=== PATIENT | male | born 1945 | race Caucasian/White ===

== ENCOUNTER → 2017-02-08 | Outpatient (CLI) | payer MEDICARE, BC ==
[2017-02-08 10:38] LABS: CH 31.8; CHCM 32.8; HCT 50.2 % (39.0-53.0); HDW 2.28; HGB 15.8 gm/dL (13.0-17.5); MCH 30.8 pg (25.0-35.0); MCHC 31.6 g/dL (31.0-37.0); MCV 97.4 fL (80.0-100.0); Mean Platelet Volume 8.2; RBC 5.15 m/uL (4.30-5.90); RDW 14.4 % (11.5-15.5)
[2017-02-08 11:18] LABS: Anion Gap 9 mmol/L; Blood Urea Nitrogen 19 mg/dL (9-20); Calcium 9.5 mg/dL (8.4-10.2); Carbon Dioxide 28 mmol/L (22-30); Chloride 106 mmol/L (98-107); Glucose 94 mg/dL (74-99); Non-African American GFR(MDRD) >60 (>60 ml/min/1.73 sqM); Potassium 4.4 mmol/L (3.5-5.1); Sodium 143 mmol/L (137-145)
== END | disposition home or self-care (01) ==
LOC: LABPAT 10:09
PROVIDERS: ATTEND Internal Medicine Interventional Cardiology
DX: Z01.812 Encounter for preprocedural laboratory examination (principal); I10 Essential (primary) hypertension; I35.0 Nonrheumatic aortic (valve) stenosis; I25.10 Atherosclerotic heart disease of native coronary artery without angina pectoris
CPT/HCPCS: 80048; 85027

== ENCOUNTER → 2017-02-18 | Day surgery (SDC) | payer MEDICARE, BC ==
[2017-02-10 10:24] VITALS: BMI 36.8
[~2017-02-18] MED LIST: ALPRAZolam 0.25 MG TAB PO PRN; ALPRAZolam 0.5 MG TAB PO PRN; ASPIRIN 325 MG TAB PO STA; ATORVASTATIN 80 MG TAB PO STA; BENZOCAINE SPRAY 1 SPRAY CAN MUCOUS MEM ONE; HEPARIN SODIUM 1,000 UN/ML (10ML VL) IV ONE; IOHEXOL 350 MG/ML 100 ML BOTTLE INJ ONE; LIDOCAINE 2% INJ 20 MG/ML SQ ONE; MIDAZOLAM 2 MG/2 ML VIAL IV ONE; MIDAZOLAM 2 MG/2 ML VIAL ONE; NITROGLYCERIN SL TABS 0.4 MG TAB SUBLINGUAL PRN; SODIUM CHLORIDE 0.9% 1,000 ML IV ONE; SODIUM CHLORIDE 0.9% 1,000 ML in EMPTY BAG 1 BAG IV ONE; VERAPAMIL SYRINGE (5 MG/10 ML) INTRAARTER ONE; diphenhydrAMINE 50 MG/ML 1 ML VIAL IVP ONE; fentaNYL (PF) 50 MCG/ML 2 ML AMP IV ONE; fentaNYL (PF) 50 MCG/ML 2 ML AMP ONE
[2017-02-18 09:16] VITALS: RESP 16
--- NOTE | 2017-02-18 16:05 | ECHOT ---
TRANSESOPHAGEAL ECHOCARDIOGRAM TRANSESOPHAGEAL ECHOCARDIOGRAM The transesophageal echocardiogram was performed to evaluate the patient's aortic stenosis. Patient was given intravenous sedation with Versed and fentanyl and transesophageal echocardiogram was performed without any complications. Left ventricular chamber is normal in size with mild degree of left ventricular hypertrophy and normal left ventricular systolic functions. The left atrium is mildly enlarged. The left atrial appendage is normal. Mitral valve morphology is normal. Aortic valve is calcified and it is tricuspid. Aortic valve area is about 1.4 square centimeter suggestive of moderate degree of aortic stenosis. A peak gradient of about 65 to 70 mmHg was noted across the aortic valve; however, there is a moderate degree of eccentric aortic regurgitation noted. Left ventricular systolic function is normal. Interatrial septum is intact. Descending thoracic aorta is normal. There is no evidence of any PFO by saline contrast study. FINAL IMPRESSION: 1. The aortic valve is trileaflet, calcified. Aortic valve area is about 1.4 square centimeter suggestive of moderate degree of aortic stenosis. There is a moderate degree of eccentric aortic regurgitation noted. 2. Left ventricular chamber is normal in size with mild degree of left ventricular hypertrophy and normal left ventricular systolic function. 3. Left atrium is mildly enlarged. 4. Left atrial appendage is clear. 5. Interatrial septum is intact without any evidence of any patent foramen ovale. MMODL / IJN: [id number] /
[2017-02-18 18:28] VITALS: BP 126/80; PULSE 58; TEMP 98.2
--- NOTE | 2017-02-19 08:24 | CC ---
CARDIAC CATHETERIZATION REPORT DATE OF SERVICE: 02/18/2017. PROCEDURE: Left heart catheterization, coronary angiography and aortography. PERFORMED BY: Dr. Andres Hampton. CLINICAL INFORMATION: Mr. Matthieu Lara is a 71-year-old gentleman with history of known CAD, who underwent stenting of nondominant good caliber circumflex that was performed in March of 2013. He also has moderate to severe aortic stenosis with progressive increasing symptoms as well as increased velocity across the aortic valve. He had a transesophageal echo which revealed moderate aortic stenosis and moderate regurgitation. Valve area was in the 1.4 range. He was also advised coronary angiography given his symptoms of exertional chest pressure and known previous PCI. Moderate conscious sedation was provided for a total duration of 30 minutes. PROCEDURE: Under local anesthesia and strict aseptic precautions, a 6-English introducer was placed in the right radial artery. I used a micropuncture needle technique. A ultimate 1 catheter was used to perform selective coronary angiography of the left coronary system. A standard right Lynsey catheter was used to perform selective coronary angiography of the right coronary artery. LV pressures were not checked and LV- gram was not performed. I then performed an aortogram in the INDIAN projection to assess for aortic regurgitation. The patient tolerated the procedure well. The sheath was taken out and he had a new device to secure hemostasis. This is called a Tracelet. Good hemostasis was secured and was sent to the room in stable condition. The patient received 3000 units of heparin intravenously. Findings on cardiac cath and MAHSA were discussed with the patient and and I expect he will be discharged later on today if she remains stable. CORONARY ANGIOGRAPHY FINDINGS: Right coronary artery: A very large dominant vessel. It has minor irregularities. No significant disease. Distally bifurcates into a larger PLV and small PDA both of which are quite large in distribution. No significant disease other than minor irregularities. Left main coronary artery: Short patent disease-free vessel that bifurcates into LAD and circumflex. LAD has minor irregularities, gives of diagonal branches and proximally several septal branches. No significant disease. Left posterior circumflex coronary artery: This vessel in the midportion was stented with a 3.0 caliber 18 mm drug-eluting stent in 2012. The vessel is widely patent with brisk flow. No evidence of any restenosis noted. Aortogram: This was performed in INDIAN projection and revealed aortic root that was of normal size. There is mild to moderate eccentric aortic regurgitation that seems to flow along the left coronary cusp. IMPRESSION: This patient does not have any restenosis of the circumflex. His LAD and dominant RCA are free of significant disease. He does have mild to moderate, probably more moderate than mild aortic regurgitation. By MAHSA echo he has moderate aortic stenosis. RECOMMENDATIONS: I agree with continued medical therapy without intervention for now. Findings were discussed with the patient and . I expect he will be discharged later on today if he remains stable. SAYRA / BETY: [id number] / JO
== END ==
LOC: CATHCVL 07:48
PROVIDERS: ATTEND Internal Medicine Interventional Cardiology
DX: I25.10 Atherosclerotic heart disease of native coronary artery without angina pectoris (principal); Z95.5 Presence of coronary angioplasty implant and graft; I35.0 Nonrheumatic aortic (valve) stenosis; J45.909 Unspecified asthma, uncomplicated; I10 Essential (primary) hypertension; E66.9 Obesity, unspecified; Z68.36 Body mass index [BMI] 36.0-36.9, adult; E78.5 Hyperlipidemia, unspecified; Z79.02 Long term (current) use of antithrombotics/antiplatelets; Z79.82 Long term (current) use of aspirin; Z79.899 Other long term (current) drug therapy; Z82.49 Family history of ischemic heart disease and other diseases of the circulatory system
CPT/HCPCS: 93312; 93320; 93325; 93454; 93567; 99152; 99153; C1894 ×2; J2001; J2250; J1200; Q9967; J3010; J1644

== ENCOUNTER 2017-03-29 08:13 | Day surgery (SDC) | payer MEDICARE, BC ==
[2017-03-25 12:57] VITALS: BMI 36.8
[~2017-03-29 08:13] MED LIST changes: -ALPRAZolam 0.25 MG TAB PO PRN; -ALPRAZolam 0.5 MG TAB PO PRN; -ASPIRIN 325 MG TAB PO STA; -ATORVASTATIN 80 MG TAB PO STA; -BENZOCAINE SPRAY 1 SPRAY CAN MUCOUS MEM ONE; -HEPARIN SODIUM 1,000 UN/ML (10ML VL) IV ONE; -IOHEXOL 350 MG/ML 100 ML BOTTLE INJ ONE; +LACTATED RINGERS 1,000 ML IV SCH; +LIDOCAINE 1% 20 ML VIAL (10MG/ML) FOR IV START INTRADERMA PRN; -LIDOCAINE 2% INJ 20 MG/ML SQ ONE; -MIDAZOLAM 2 MG/2 ML VIAL IV ONE; -MIDAZOLAM 2 MG/2 ML VIAL ONE; -NITROGLYCERIN SL TABS 0.4 MG TAB SUBLINGUAL PRN; -SODIUM CHLORIDE 0.9% 1,000 ML IV ONE; -SODIUM CHLORIDE 0.9% 1,000 ML in EMPTY BAG 1 BAG IV ONE; -VERAPAMIL SYRINGE (5 MG/10 ML) INTRAARTER ONE; -diphenhydrAMINE 50 MG/ML 1 ML VIAL IVP ONE; -fentaNYL (PF) 50 MCG/ML 2 ML AMP IV ONE; -fentaNYL (PF) 50 MCG/ML 2 ML AMP ONE
[2017-03-29 09:21] VITALS: RESP 16; TEMP 98.1
[2017-03-29] MEDS ORDERED: LIDOCAINE 1% INJ 10MG/ML (20 ML MDV) ONE (09:44)
[2017-03-29] MEDS ORDERED: PROPOFOL 10 MG/ML 20 ML VIAL IV ONE (09:44)
--- NOTE | 2017-03-29 10:16 | P.PCN ---
Date of Procedure: 03/29/17 Procedure(s) Performed: Procedure: Total colonoscopy. Preoperative diagnosis: Screening for neoplasia, patient has history of polyps. Postoperative diagnosis: Left sided diverticulosis with no evidence of acute diverticulitis, strictures, polyps or cancer. Preparation: HalfLytely prep. Sedation: Was provided by anesthesia. Brief clinical history: The patient is a 72-year-old male who is scheduled for this evaluation for screening for neoplasia age being her risk factor as well as history of polyps. His last exam was in October 2011. He has no abdominal complaints at this time, bleeding or anemia. Procedure: With the patient on his left lateral decubitus position and after informed consent and adequate sedation, the perianal area was inspected and it did not show any fissures or fistulas. There were no masses felt on digital rectal examination. The Olympus CFQ 160L video colonoscope was then inserted in the rectum in the usual fashion and advanced to the cecum. The mucosa appeared healthy. No polyps or tumors were seen. There was several diverticular orifices seen scattered along the left side with no evidence of acute diverticulitis or strictures. I retroflexed the endoscope in the rectum before the endoscope was withdrawn. The patient tolerated the procedure well. Plan: The patient was reassured. Discussed dietary measures. He will follow- up with you as planned and I recommended repeat exam in 5 years.
[2017-03-29 10:42] VITALS: BP 110/55; PULSE 48
== END 2017-03-29 11:24 | disposition home or self-care (01) ==
LOC: ORWHC2ENDO 08:13
DX: Z12.11 Encounter for screening for malignant neoplasm of colon (principal); K57.30 Diverticulosis of large intestine without perforation or abscess without bleeding; Z86.010 Personal history of colon polyps; N40.0 Benign prostatic hyperplasia without lower urinary tract symptoms; I25.10 Atherosclerotic heart disease of native coronary artery without angina pectoris; Z95.5 Presence of coronary angioplasty implant and graft; I10 Essential (primary) hypertension; E78.5 Hyperlipidemia, unspecified; M19.90 Unspecified osteoarthritis, unspecified site; Z79.02 Long term (current) use of antithrombotics/antiplatelets; Z79.82 Long term (current) use of aspirin; Z79.899 Other long term (current) drug therapy
CPT/HCPCS: J2001; J2704; G0105; 45378

== ENCOUNTER → 2018-02-24 | Outpatient (CLI) | payer MEDICARE, BC | LOC: LABWHC1 15:46 | PROVIDERS: ATTEND Orthopaedic Surgery | DX: Z01.818 Encounter for other preprocedural examination (principal); N28.9 Disorder of kidney and ureter, unspecified | CPT/HCPCS: 36415; 82565; 84520 ==

== ENCOUNTER → 2018-05-31 | Outpatient (CLI) | payer MEDICARE, BC ==
[2018-05-31 12:59] LABS: HCT 41.3 % (39.0-53.0); HGB 12.9 gm/dL (13.0-17.5); Hypochromasia Slight; MCH 29.8 pg (25.0-35.0); MCHC 31.1 g/dL (31.0-37.0); MCV 95.6 fL (80.0-100.0); Mean Platelet Volume 7.5; Platelet Count 206 k/uL (150-450); RBC 4.32 m/uL (4.30-5.90); RDW 13.8 % (11.5-15.5); WBC 8.5 k/uL (3.8-10.6)
[2018-05-31 13:08] LABS: ALT 24 U/L (21-72); AST 24 U/L (17-59); Albumin 4.1 g/dL (3.5-5.0); Albumin/Globulin Ratio 1.4; Alkaline Phosphatase 167 U/L (38-126); Anion Gap 12 mmol/L; Blood Urea Nitrogen 17 mg/dL (9-20); Calcium 9.5 mg/dL (8.4-10.2); Carbon Dioxide 24 mmol/L (22-30); Chloride 107 mmol/L (98-107); Glucose 102 mg/dL (74-99); Sodium 143 mmol/L (137-145); Total Bilirubin 0.6 mg/dL (0.2-1.3); Total Protein 7.1 g/dL (6.3-8.2)
--- NOTE | 2018-05-31 13:19 | XR ---
EXAMINATION TYPE: XR chest 2V DATE OF EXAM: 05/31/2018 COMPARISON: 03/21/2013 HISTORY: Fever, chills, and loss of appetite. TECHNIQUE: Frontal and lateral views of the chest are obtained. FINDINGS: There is no focal air space opacity, pleural effusion, or pneumothorax seen. The cardiac silhouette size is within normal limits. The osseous structures are intact. There is slight pulmona ry hyperinflation with partial flattening of the diaphragms on the lateral view suggesting a degree o f underlying pulmonary emphysema. Mild multilevel degenerative changes of the thoracic spine are seen . Degenerative changes of the acromioclavicular joints are moderate. IMPRESSION: No acute cardiopulmonary process.
[2018-05-31 14:36] LABS: Appearance,Urine Cloudy (Clear); Bilirubin,Urine Negative (Negative); Blood,Urine Moderate (Negative); Color,Urine Yellow; Glucose,Urine (UA) Negative (Negative); Hyaline Casts,Urine 11 /lpf (0-2); Ketones,Urine Negative (Negative); Leukocyte Esterase,Urine Large (Negative); Mucus,Urine Occasional /hpf; Nitrite,Urine Negative (Negative); Protein,Urine 1+ (Negative); RBC,Urine 13 /hpf (0-5); Specific Gravity,Urine 1.011 (1.001-1.035); Squamous Epithelial Cell,Urine 3 /hpf (0-4); Urobilinogen,Urine <2.0 mg/dL (<2.0); WBC,Urine >182 /hpf (0-5)
[2018-05-31 14:43] LABS: Bacteria,Urine Rare /hpf
== END ==
LOC: LABWHC1 12:16
PROVIDERS: ATTEND Internal Medicine
DX: R50.9 Fever, unspecified (principal)
CPT/HCPCS: 36415; 71046; 80053; 81001; 85027; 87086

== ENCOUNTER 2019-10-17 06:38 | Inpatient (IN) | payer MEDICARE, BC ==
[2019-10-17] MEDS ORDERED: SODIUM CHLORIDE 0.9% 500 ML 500 ML IV STA (06:44)
[2019-10-17] MEDS ORDERED: PANTOPRAZOLE 40 MG/10 ML VIAL IVP STA (06:50)
[2019-10-17] MEDS ORDERED: SODIUM CHLORIDE 0.9% 1,000 ML IV ONE (07:00)
--- NOTE | 2019-10-17 07:05 | ED ---
GI Bleed HPI <Bulmaro Desir - Last Filed: 10/17/19 08:20> - General Source: EMS Mode of arrival: EMS Limitations: no limitations <AlkaTiffani Duong - Last Filed: 10/17/19 09:43> - General Chief complaint: GI Bleed Stated complaint: GI Bleed Time Seen by Provider: 10/17/19 06:44 - History of Present Illness Initial comments: 74yo male presenting today for abdominal discomfort x 1 week and rectal bleeding x 1 night. Patient states he has been having abdominal pain x 1 week, worsening since last night. He states he then began having very loose stools that were very dark/dark red. He denies anticoagulation therapy. Denies vomiting, upper abdominal pain, back pain. Denies fevers, cough. Denies known history of diverticulosis. Patient denies chest pain SOB. Patient states he felt lightheaded after last BM and called EMS as he was nervous he may pass out. Patient has no additional complaints. Upon arrival patient appears well there is no signs of acute distress. Pt states he has been off plavix for a 1.5 yrs (Tiffani Rucker) - Related Data Home Medications Medication Instructions Recorded Confirmed Aspirin [Adult Low Dose Aspirin EC] 81 mg PO DAILY 02/10/17 10/17/19 Atorvastatin [Lipitor] 40 mg PO HS 02/10/17 10/17/19 Ketotifen 0.025% Ophth Soln 1 drop BOTH EYES BID PRN 02/10/17 10/17/19 [Zaditor] Losartan Potassium [Cozaar] 100 mg PO DAILY 02/10/17 10/17/19 Magnesium Chloride [Slow Mag] 64 mg PO BID 02/10/17 10/17/19 Metoprolol Tartrate [Lopressor] 25 mg PO DAILY 02/10/17 10/17/19 Ubidecarenone [Co Q-10] 100 mg PO HS 02/10/17 10/17/19 amLODIPine [Norvasc] 5 mg PO DAILY 02/10/17 10/17/19 Acetaminophen [Tylenol Extra 500 mg PO BID 10/17/19 10/17/19 Strength] Calcium Carbonate [Calcium] 600 mg PO HS 10/17/19 10/17/19 Clotrimazole/Betamethasone Dip 1 applic TOPICAL BID 10/17/19 10/17/19 [Lotrisone Cream] Pantoprazole Sodium [Protonix] 40 mg PO DAILY 10/17/19 10/17/19 Allergies Allergy/AdvReac Type Severity Reaction Status Date / Time No Known Allergies Allergy Verified 10/17/19 08:21 Review of Systems ROS Other: All systems not noted in ROS Statement are negative. <Bulmaro Desir - Last Filed: 10/17/19 08:20> ROS Other: All systems not noted in ROS Statement are negative. <Tiffani Rucker Rhoda - Last Filed: 10/17/19 09:43> ROS Statement: Those systems with pertinent positive or pertinent negative responses have been documented in the HPI. Past Medical History Past Medical History: Hyperlipidemia, Hypertension, Osteoarthritis (OA), Prostate Disorder Additional Past Medical History / Comment(s): past hx colon polyps, artoic stenosis History of Any Multi-Drug Resistant Organisms: None Reported Past Surgical History: Adenoidectomy, Cholecystectomy, Heart Catheterization, Heart Catheterization With Stent, Orthopedic Surgery, Tonsillectomy Additional Past Surgical History / Comment(s): arthroscopy knee Past Anesthesia/Blood Transfusion Reactions: No Reported Reaction Date of Last Stent Placement:: 2012 Past Psychological History: No Psychological Hx Reported Smoking Status: Never smoker Past Alcohol Use History: None Reported Past Drug Use History: None Reported <AlkaTiffani L - Last Filed: 10/17/19 09:43> General Exam Limitations: no limitations <Tiffani Rucker - Last Filed: 10/17/19 09:43> - General Exam Comments Initial Comments: General: The patient is awake and alert Eye: +3 mm pupils are equal, round and reactive to light, extra-ocular movements are intact. No nystagmus. There is normal conjunctiva bilaterally. No signs of icterus. Cardiovascular: There is a increased rate and regular rhythm. No rub or gallop is appreciated. Pt has murmur. Respiratory: Lungs are clear to auscultation, respirations are non-labored, breath sounds are equal. No wheezes, stridor, rales, or rhonchi. Gastrointestinal: Soft, non-distended, non-tender abdomen without masses or organomegaly noted. There is no rebound or guarding present. Rectal: Large amount of dark melanotic stool, red tinge. Musculoskeletal: Normal ROM, no tenderness. Strength 5/5. Sensation intact. Radial pulses equal bilaterally 2+. Neurological: A&O x 3. CN II-XII intact grossly, There are no obvious motor or sensory deficits. Coordination appears grossly intact. Speech is normal. Skin: Skin is warm and dry and no rashes or lesions are noted. Psychiatric: Cooperative, appropriate mood & affect, normal judgment. (Tiffani Rucker) Course <ThangBulmaro - Last Filed: 10/17/19 08:20> Vital Signs 10/17/19 10/17/19 06:39 08:46 Temperature 99 F 98.1 F Pulse Rate 105 H 96 Respiratory 20 16 Rate Blood Pressure 131/81 119/72 O2 Sat by Pulse 98 97 Oximetry - Reevaluation(s) Reevaluation #1: 10/17/19 08:20 PA supervision: I proceeded [id number] evaluation the patient patient did have about a week and started having dark bowel movements some mixed with red and black. He was noted to be anemic and had a positive Hemoccult on examination. Patient will be admitted for GI bleed the case is discussed with the [facility] Dr. Chan. (Bulmaro Desir) Medical Decision Making - Lab Data Result diagrams: 10/17/19 06:45 10/17/19 06:45 <ThangBulmaro - Last Filed: 10/17/19 08:20> - Lab Data Result diagrams: 10/17/19 06:45 10/17/19 06:45 <Tiffani Rucker - Last Filed: 10/17/19 09:43> - Medical Decision Making 74yo male presenting today for cc of rectal bleeding/lower abdominal pain. Hgb stable. Mild tachycardia and elevation of troponin concerning for acute GI bleed. Patient given protonix in the ER. Hx of frequent NSAID use. Patient CT revealed possible diverticulitis with more definite diverticulosis. Patient no leukocytosis, patient does not appear toxic. Patient initiated on zosyn, IV fluids (1L initially given--limited somewhat secondary to patient have valvular disease, did not want to fluid overload patient). Patient will be admitted to for acute GI bleed. Repeat CBC ordered. Covid (-). [facility] Physician Dr. Chan accepted the admission. Discussed findings with patient-transferred to floor in stable condition. (Tiffani Rucker) - Lab Data Lab Results 10/17/19 10/17/19 10/17/19 Range/Units 06:45 06:45 06:45 WBC 11.2 H (3.8-10.6) k/uL RBC 3.36 L (4.30-5.90) m/uL Hgb 10.5 L (13.0-17.5) gm/dL Hct 32.3 L (39.0-53.0) % MCV 96.2 (80.0-100.0) fL MCH 31.4 (25.0-35.0) pg MCHC 32.6 (31.0-37.0) g/dL RDW 14.3 (11.5-15.5) % Plt Count 221 (150-450) k/uL Neutrophils % 85 % Lymphocytes % 11 % Monocytes % 2 % Eosinophils % 0 % Basophils % 0 % Neutrophils # 9.4 H (1.3-7.7) k/uL Lymphocytes # 1.2 (1.0-4.8) k/uL Monocytes # 0.2 (0-1.0) k/uL Eosinophils # 0.0 (0-0.7) k/uL Basophils # 0.1 (0-0.2) k/uL Hypochromasia Slight Sodium 139 (137-145) mmol/L Potassium 4.9 (3.5-5.1) mmol/L Chloride 111 H (98-107) mmol/L Carbon Dioxide 19 L (22-30) mmol/L Anion Gap 9 mmol/L BUN 52 H (9-20) mg/dL Creatinine 0.96 (0.66-1.25) mg/dL Est GFR (CKD-EPI)AfAm >90 (>60 ml/min/1.73 sqM) Est GFR (CKD-EPI)NonAf 78 (>60 ml/min/1.73 sqM) Glucose 220 H (74-99) mg/dL Calcium 8.6 (8.4-10.2) mg/dL Total Bilirubin 0.4 (0.2-1.3) mg/dL AST 27 (17-59) U/L ALT 18 (4-49) U/L Alkaline Phosphatase 70 (38-126) U/L Troponin I 0.064 H* (0.000-0.034) ng/mL Total Protein 6.1 L (6.3-8.2) g/dL Albumin 3.4 L (3.5-5.0) g/dL Stool Occult Blood (Negative) Blood Type Blood Type Confirm Blood Type Recheck Bld Type Recheck Status Antibody Screen Spec Expiration Date 10/17/19 10/17/19 10/17/19 Range/Units 06:45 06:45 08:00 WBC (3.8-10.6) k/uL RBC (4.30-5.90) m/uL Hgb (13.0-17.5) gm/dL Hct (39.0-53.0) % MCV (80.0-100.0) fL MCH (25.0-35.0) pg MCHC (31.0-37.0) g/dL RDW (11.5-15.5) % Plt Count (150-450) k/uL Neutrophils % % Lymphocytes % % Monocytes % % Eosinophils % % Basophils % % Neutrophils # (1.3-7.7) k/uL Lymphocytes # (1.0-4.8) k/uL Monocytes # (0-1.0) k/uL Eosinophils # (0-0.7) k/uL Basophils # (0-0.2) k/uL Hypochromasia Sodium (137-145) mmol/L Potassium (3.5-5.1) mmol/L Chloride (98-107) mmol/L Carbon Dioxide (22-30) mmol/L Anion Gap mmol/L BUN (9-20) mg/dL Creatinine (0.66-1.25) mg/dL Est GFR (CKD-EPI)AfAm (>60 ml/min/1.73 sqM) Est GFR (CKD-EPI)NonAf (>60 ml/min/1.73 sqM) Glucose (74-99) mg/dL Calcium (8.4-10.2) mg/dL Total Bilirubin (0.2-1.3) mg/dL AST (17-59) U/L ALT (4-49) U/L Alkaline Phosphatase (38-126) U/L Troponin I (0.000-0.034) ng/mL Total Protein (6.3-8.2) g/dL Albumin (3.5-5.0) g/dL Stool Occult Blood Positive (Negative) Blood Type TNP AB Positive Blood Type Confirm Blood Type Recheck No Previous Record No Previous Record Bld Type Recheck Status CABO Indicated CABO Indicated Antibody Screen TNP NEGATIVE Spec Expiration Date 10/20/2019 - 234410/20/2019 - 229910/17/19 Range/Units 08:05 WBC (3.8-10.6) k/uL RBC (4.30-5.90) m/uL Hgb (13.0-17.5) gm/dL Hct (39.0-53.0) % MCV (80.0-100.0) fL MCH (25.0-35.0) pg MCHC (31.0-37.0) g/dL RDW (11.5-15.5) % Plt Count (150-450) k/uL Neutrophils % % Lymphocytes % % Monocytes % % Eosinophils % % Basophils % % Neutrophils # (1.3-7.7) k/uL Lymphocytes # (1.0-4.8) k/uL Monocytes # (0-1.0) k/uL Eosinophils # (0-0.7) k/uL Basophils # (0-0.2) k/uL Hypochromasia Sodium (137-145) mmol/L Potassium (3.5-5.1) mmol/L Chloride (98-107) mmol/L Carbon Dioxide (22-30) mmol/L Anion Gap mmol/L BUN (9-20) mg/dL Creatinine (0.66-1.25) mg/dL Est GFR (CKD-EPI)AfAm (>60 ml/min/1.73 sqM) Est GFR (CKD-EPI)NonAf (>60 ml/min/1.73 sqM) Glucose (74-99) mg/dL Calcium (8.4-10.2) mg/dL Total Bilirubin (0.2-1.3) mg/dL AST (17-59) U/L ALT (4-49) U/L Alkaline Phosphatase (38-126) U/L Troponin I (0.000-0.034) ng/mL Total Protein (6.3-8.2) g/dL Albumin (3.5-5.0) g/dL Stool Occult Blood (Negative) Blood Type Blood Type Confirm AB Positive Blood Type Recheck Bld Type Recheck Status Antibody Screen Spec Expiration Date Disposition <Bulmaro Desir - Last Filed: 10/17/19 08:20> Is patient prescribed a controlled substance at d/c from ED?: No Time of Disposition: 07:48 Decision to Admit Reason: Admit from EC Decision Date: 10/17/19 Decision Time: 07:48 <Tiffani Rucker - Last Filed: 10/17/19 09:43> Clinical Impression: GI bleed, Tachycardia, Elevated troponin, Diverticulitis Disposition: ADMITTED IP TO THIS HOSP Condition: Serious
[2019-10-17] MEDS: SODIUM CHLORIDE 0.9% 1,000 ML IV SCH ×3 (07:07→20:27)
[2019-10-17 07:10] LABS: Basophils # (A) 0.1 k/uL (0-0.2); Basophils % (A) 0 %; Eosinophils % (A) 0 %; HCT 32.3 % (39.0-53.0); HGB 10.5 gm/dL (13.0-17.5); Hypochromasia Slight; Lymphocytes # (A) 1.2 k/uL (1.0-4.8); Lymphocytes % (A) 11 %; MCH 31.4 pg (25.0-35.0); MCHC 32.6 g/dL (31.0-37.0); MCV 96.2 fL (80.0-100.0); Mean Platelet Volume 8.4; Monocytes # (A) 0.2 k/uL (0-1.0); Monocytes % (A) 2 %; Neutrophils # (A) 9.4 k/uL (1.3-7.7); Neutrophils % (A) 85 %; Platelet Count 221 k/uL (150-450); RBC 3.36 m/uL (4.30-5.90); RDW 14.3 % (11.5-15.5); WBC 11.2 k/uL (3.8-10.6)
[2019-10-17 07:19] LABS: ALT 18 U/L (4-49); AST 27 U/L (17-59); African American GFR (CKD) >90 (>60 ml/min/1.73 sqM); Albumin 3.4 g/dL (3.5-5.0); Alkaline Phosphatase 70 U/L (38-126); Anion Gap 9 mmol/L; Blood Urea Nitrogen 52 mg/dL (9-20); Calcium 8.6 mg/dL (8.4-10.2); Carbon Dioxide 19 mmol/L (22-30); Chloride 111 mmol/L (98-107); Glucose 220 mg/dL (74-99); Non-African American GFR(CKD) 78 (>60 ml/min/1.73 sqM); Sodium 139 mmol/L (137-145); Total Bilirubin 0.4 mg/dL (0.2-1.3); Total Protein 6.1 g/dL (6.3-8.2)
[2019-10-17 07:23] LABS: Potassium 4.9 mmol/L (3.5-5.1)
[2019-10-17] MEDS ORDERED: NALOXONE 0.4 MG/ML 1 ML VIAL IV PRN (07:35)
--- NOTE | 2019-10-17 08:09 | CT ---
EXAMINATION TYPE: CT abdomen pelvis w con DATE OF EXAM: 10/17/2019 COMPARISON: HISTORY: LLQ pain, rectal bleeding CT DLP: 2420.3 mGycm CONTRAST: CT scan of the abdomen and pelvis is performed without Oral Contrast and with IV Contrast, patient in jected with 100 mL of Isovue 300. FINDINGS: LUNG BASES-: No visible nodule. No infiltrate. LIVER/GB: The gallbladder surgically absent. No space occupying hepatic lesion. Biliary tree is of normal caliber. PANCREAS: No inflammation. No distinct mass. SPLEEN: No splenic enlargement. No lesion seen. ADRENALS: No nodule. No thickening. KIDNEYS/BLADDER: No hydronephrosis. 3 mm nonobstructing calculus mid pole left kidney. Renal cystic change noted bilaterally with the greatest cyst lower pole right kidney measuring 4.8 cm. Urinary kayleen dder grossly unremarkable. BOWEL: Normal appendix. Normal bowel caliber. Moderate diverticulosis of the sigmoid colon with mini mal stranding noted. This could reflect very early diverticulitis. Correlate clinically. GENITAL ORGANS: Prostate calcifications identified. LYMPH NODES: No greater than 1cm abdominal or pelvic lymph nodes are appreciated. AORTA: No significant abnormality. OSSEOUS STRUCTURES: No significant abnormality is seen. OTHER: No significant additional abnormality is seen. IMPRESSION: 1. Moderate diverticulosis of the sigmoid colon with minimal stranding noted. This could reflect very early diverticulitis. Correlate clinically.
[2019-10-17] MEDS ORDERED: PIPERACILLIN-TAZOBACTAM 3.375 GM in SODIUM CHLORIDE 0.9% 100 ML IVPB STA (08:14)
[2019-10-17 11:40] LABS: Basophils % (A) 0 %; Eosinophils % (A) 0 %; HCT 30.8 % (39.0-53.0); HGB 9.6 gm/dL (13.0-17.5); Hypochromasia Moderate; Lymphocytes # (A) 1.3 k/uL (1.0-4.8); Lymphocytes % (A) 11 %; MCH 30.5 pg (25.0-35.0); MCV 98.4 fL (80.0-100.0); Mean Platelet Volume 8.4; Monocytes # (A) 0.5 k/uL (0-1.0); Monocytes % (A) 5 %; Neutrophils # (A) 9.5 k/uL (1.3-7.7); Neutrophils % (A) 83 %; Platelet Count 211 k/uL (150-450); RBC 3.13 m/uL (4.30-5.90); RDW 14.4 % (11.5-15.5); WBC 11.5 k/uL (3.8-10.6)
[2019-10-17] MEDS ORDERED: ACETAMINOPHEN TAB 325 MG TAB PO PRN (13:06)
[2019-10-17] MEDS ORDERED: ONDANSETRON 4 MG/2 ML VIAL IVP PRN (13:06)
[2019-10-17] MEDS ORDERED: MORPHINE SULFATE 2 MG/ML SYRINGE IV PRN (13:06)
[2019-10-17] MEDS ORDERED: HYDROcodone/APAP 5-325MG 1 EACH TAB PO PRN (13:06)
[2019-10-17] MEDS ORDERED: SODIUM CHLORIDE 0.9% 1,000 ML IV STA (13:21)
--- NOTE | 2019-10-17 13:39 | P.HPIM ---
History of Present Illness H&P Date: 10/17/19 Chief Complaint: Melena Patient is a 74-year-old male with a past medical history of aortic stenosis followed by Dr. Hampton with twice yearly echocardiogram and likely need for aortic valve replacement, diverticular disease found on colonoscopy in 2017, hypertension, dyslipidemia, BPH, and coronary artery disease with history of one stent who presented to the ER with complaints of abdominal pain and melena. In the ER he underwent extensive exam. On arrival he was slightly tachycardic with a pulse of 105, laboratory analysis showed a mildly elevated white blood cell count 11.2, hemoglobin 10.5, chloride 111, carbon dioxide 19, glucose 220, and troponin 0.064. When necessary CT abdomen and pelvis which showed moderate diverticulosis in the sigmoid colon with minimal stranding noted could be early diverticulitis. In the ER he was given a dose of IV Protonix and Zosyn. He was admitted for further monitoring. GI was consulted as well as cardiology for clearance. Patient seen and examined at bedside. He reports that he started having some abdominal pain approximately one and half to 2 weeks ago. He reports that he started noticing some diffuse abdominal pain associated with stools that were dark in color becoming more frequent. Approximately 5 days ago he was seen by his primary care practitioner and prescribed Protonix. He initially took those for 4 days and felt better. However last evening he had a sharp increase in his pain after dinner. He started having diarrhea which was new in his stools were dark black and frequent. He was becoming weaker and weaker. He didn't feel as though he could not get off the toilet and back to bed and therefore called 911. When he stood up he got nauseous and vomited. He does report that he has been feeling fatigued for approximately last 2 weeks. Approximately 3 weeks ago he started a seven-day course of Aleve twice daily to see if it helps with his shoulder pain, it did not relieve this and he therefore stopped it, he does not drink any coffee or alcohol. He reports he has had colonoscopies the last in 2017 which showed diverticular disease. He ate a hotdog and potato salad for dinner prior to this episode. Review of Systems Pertinent positives and negatives as discussed in HPI, a complete review of systems was performed and all other systems are negative. Past Medical History Past Medical History: Coronary Artery Disease (CAD), Hyperlipidemia, Hypertension, Osteoarthritis (OA), Prostate Disorder Additional Past Medical History / Comment(s): past diverticulosis, artoic stenosis, BPH, Lymphoma (cured with surgery no chemo or radiation) History of Any Multi-Drug Resistant Organisms: None Reported Past Surgical History: Adenoidectomy, Cholecystectomy, Heart Catheterization, Heart Catheterization With Stent, Orthopedic Surgery, Tonsillectomy Additional Past Surgical History / Comment(s): arthroscopy knee R knee 2012, 2016 ressection of large lymphoma left leg. Past Anesthesia/Blood Transfusion Reactions: No Reported Reaction Date of Last Stent Placement:: 2012 Past Psychological History: No Psychological Hx Reported Smoking Status: Never smoker Past Alcohol Use History: None Reported Past Drug Use History: None Reported Additional History: lives with his , no assistive devices - Past Family History Father Family Medical History: Cancer Mother Family Medical History: Cancer Medications and Allergies Home Medications Medication Instructions Recorded Confirmed Type Aspirin [Adult Low Dose Aspirin EC] 81 mg PO DAILY 02/10/17 10/17/19 History Atorvastatin [Lipitor] 40 mg PO HS 02/10/17 10/17/19 History Ketotifen 0.025% Ophth Soln 1 drop BOTH EYES BID PRN 02/10/17 10/17/19 History [Zaditor] Losartan Potassium [Cozaar] 100 mg PO DAILY 02/10/17 10/17/19 History Magnesium Chloride [Slow Mag] 64 mg PO BID 02/10/17 10/17/19 History Metoprolol Tartrate [Lopressor] 25 mg PO DAILY 02/10/17 10/17/19 History Ubidecarenone [Co Q-10] 100 mg PO HS 02/10/17 10/17/19 History amLODIPine [Norvasc] 5 mg PO DAILY 02/10/17 10/17/19 History Acetaminophen [Tylenol Extra 500 mg PO BID 10/17/19 10/17/19 History Strength] Calcium Carbonate [Calcium] 600 mg PO HS 10/17/19 10/17/19 History Clotrimazole/Betamethasone Dip 1 applic TOPICAL BID 10/17/19 10/17/19 History [Lotrisone Cream] Pantoprazole Sodium [Protonix] 40 mg PO DAILY 10/17/19 10/17/19 History Allergies Allergy/AdvReac Type Severity Reaction Status Date / Time No Known Allergies Allergy Verified 10/17/19 08:21 Physical Exam Osteopathic Statement: *. No significant issues noted on an osteopathic structural exam other than those noted in the History and Physical/Consult. Vitals: Vital Signs Temp Pulse Pulse Resp BP BP Pulse Ox 10/17/19 10:19 98.2 F 91 18 122/75 95 10/17/19 08:46 98.1 F 96 16 119/72 97 10/17/19 06:39 99 F 105 H 20 131/81 98 Intake and Output 10/16/19 10/17/19 10/17/19 22:59 06:59 14:59 Other: Weight 123.377 kg 123.377 kg General: ill appearing, no distress, appears at stated age, normal weight Derm: + pale, 12 inch scar left tigh, no unusual rashes/lesions no unusual ecchymoses, warm, dry Head: atraumatic, normocephalic, symmetric Eyes: EOMI, no lid lag, anicteric sclera, pupils equal round reactive to light ENT: Nose and ears atraumatic, no thrush, no pharyngeal erythema Neck: No thyromegaly, no cervical lymphadenopathy, trachea midline, supple Mouth: no lip lesion, mucus membranes moist Cardiovascular: S1S2 reg, Grade 3 systolic murmur, positive posterior tibial pulse bilateral, no edema, capillary refill less than 2 seconds Lungs: CTA bilateral, no rhonchi, no rales , no accessory muscle use Abdominal: soft, nontender to palpation, no guarding, no appreciable organomegaly, normal bowel sounds Ext: no gross muscle atrophy, muscle strength 5 out of 5 in all 4 extremities grossly, no contractures, Neuro: CN II-XI grossly intact, light touch intact all 4 extremities, finger to nose within normal limits, Psych: Alert, oriented, appropriate affect Results CBC & Chem 7: 10/17/19 10:39 10/17/19 06:45 Labs: Abnormal Lab Results - Last 24 Hours (Table) 10/17/19 10/17/19 10/17/19 Range/Units 06:45 06:45 06:45 WBC 11.2 H (3.8-10.6) k/uL RBC 3.36 L (4.30-5.90) m/uL Hgb 10.5 L (13.0-17.5) gm/dL Hct 32.3 L (39.0-53.0) % Neutrophils # 9.4 H (1.3-7.7) k/uL Chloride 111 H (98-107) mmol/L Carbon Dioxide 19 L (22-30) mmol/L BUN 52 H (9-20) mg/dL Glucose 220 H (74-99) mg/dL Troponin I 0.064 H* (0.000-0.034) ng/mL Total Protein 6.1 L (6.3-8.2) g/dL Albumin 3.4 L (3.5-5.0) g/dL 10/17/19 Range/Units 10:39 WBC 11.5 H (3.8-10.6) k/uL RBC 3.13 L (4.30-5.90) m/uL Hgb 9.6 L (13.0-17.5) gm/dL Hct 30.8 L (39.0-53.0) % Neutrophils # 9.5 H (1.3-7.7) k/uL Chloride (98-107) mmol/L Carbon Dioxide (22-30) mmol/L BUN (9-20) mg/dL Glucose (74-99) mg/dL Troponin I (0.000-0.034) ng/mL Total Protein (6.3-8.2) g/dL Albumin (3.5-5.0) g/dL CT scan - abdomen: report reviewed CT scan - pelvis: report reviewed Thrombosis Risk Factor Assmnt - DVT/VTE Prophylaxis DVT/VTE Prophylaxis: Low risk, early ambulation encouraged - Choose All That Apply Each Risk Factor Represents 2 Points: Age 61-74 years Thrombosis Risk Factor Assessment Total Risk Factor Score: 2 Thrombosis Risk Factor Assessment Level: Low Risk Assessment and Plan Assessment: Acute blood loss anemia with GI bleed -Suspect secondary to her chronic ulcer disease less likely diverticulosis with bleeding -Continue with IV PPI -GI consult, cardiology consult for surgical clearance secondary to known aortic disease -Clear liquids -IV fluids -Case discussed with Dr. Rios -Continue with Zosyn until after scope -Hold aspirin Aortic stenosis -Obtain old echo results from Dr. Hampton's office -Cardiology consult for clearance for EGD as patient thinks he is bordering on severe disease requiring valve replacement Hypertension, controlled -Resume home metoprolol and Cozaar -Follow blood pressures Dyslipidemia -Statin therapy Hyperglycemia -Sliding-scale insulin -Check hemoglobin A1c -Follow blood sugars Obesity with BMI 34 -Outpatient structured weight loss Chronic: Arthritis Coronary artery disease BPH Degenerative disc disease The patient is admitted with an anticipated greater than 2 midnight stay for evaluation of GI bleed. Surrogate decision-maker: CODE STATUS:Full Code DVT prophylaxis: SCDs Discussed with: patient, nursing, Dr. Rios Anticipated discharge date: 2-[address]: home A total of 65 minutes was spent on the care of this complex patient more than 50% of the time was spent in counseling and care coordination.
[2019-10-17] MEDS: PIPERACILLIN-TAZOBACTAM 3.375 GM in SODIUM CHLORIDE 0.9% 100 ML IVPB SCH ×2 (16:06→23:29)
[2019-10-17 16:43] LABS: Glucose,Whole Blood 130 mg/dL (75-99)
[2019-10-17] MEDS: INSULIN ASPART (NovoLOG) 100 UNIT/ML VIAL SQ SCH (17:26)
[2019-10-17 18:22] LABS: HCT 27.4 % (39.0-53.0); HGB 8.6 gm/dL (13.0-17.5); Hypochromasia Slight; MCH 30.3 pg (25.0-35.0); MCHC 31.5 g/dL (31.0-37.0); MCV 96.1 fL (80.0-100.0); Mean Platelet Volume 9.4; Platelet Count 191 k/uL (150-450); RBC 2.85 m/uL (4.30-5.90); RDW 14.5 % (11.5-15.5); WBC 10.7 k/uL (3.8-10.6)
--- NOTE | 2019-10-17 19:46 | P.CONS ---
History of Present Illness - Reason for Consult Consult date: 10/17/19 GI bleed Requesting physician: Ivet Chin - Chief Complaint Abdominal pain, diarrhea - History of Present Illness 74-year-old male with a medical history significant for aortic stenosis, diverticulosis with last colonoscopy in 2017, hypertension, dyslipidemia, BPH an d coronary artery disease who presented to the hospital with complaints of abdominal pain and dark-colored stool. The patient reports 2 weeks of abdominal pain. Pain periumbilical as well as below the bellybutton and described as cramping in nature. The patient reports loose dark colored stool. He reports 4 days of loose dark bowel movements with 4-52 bowel movements yesterday prior to presentation. The patient also reports associated weakness. The patient had been doing fine in terms of nausea until yesterday when he reports 2 episodes of vomiting, productive of food getting. No history of peptic ulcer disease. He does believe he had EGD 10 years ago for unknown reasons. He denies any GERD. She does take aspirin daily. Computed tomography scan of the abdomen showed moderate diverticulosis with possible diverticulitis. The patient also takes pain medications daily initially reporting that this was Aleve, he believes that it may be acetaminophen. Laboratory evaluation significant for WBC 11.2, hemoglobin 10.5, platelet count 221,000 with normal liver enzymes. Stool testi ng positive for blood. Review of Systems REVIEW OF SYSTEMS: CONSTITUTIONAL: Denies any fevers, chills, weight change or fatigue. CARDIOVASCULAR: Denies any chest pain, palpitations high or low blood pressures RESPIRATORY: Denies any shortness of breath, hemoptysis or cough. GENITOURINARY: No dysuria or hematuria. MUSCULOSKELETAL: No weakness reported. SKIN: Denies any new rashes or lesions, jaundice or pallor. PSYCHIATRIC: Denies any depression or anxiety. NEUROLOGY: Denies headache, denies any new focal deficits. EARS/NOSE/THROAT: No recent hearing change, congestion, nasal discharge or sore throat. EYES: No pain in eyes, discharge or change in vision. GASTROINTESTINAL: As per HPI. Past Medical History Past Medical History: Hyperlipidemia, Hypertension, Osteoarthritis (OA), Pro state Disorder Additional Past Medical History / Comment(s): past hx colon polyps, artoic stenosis History of Any Multi-Drug Resistant Organisms: None Reported Past Surgical History: Adenoidectomy, Cholecystectomy, Heart Catheterization, Heart Catheterization With Stent, Orthopedic Surgery, Tonsillectomy Additional Past Surgical History / Comment(s): arthroscopy knee Past Anesthesia/Blood Transfusion Reactions: No Reported Reaction Date of Last Stent Placement:: 2012 Past Psychological History: No Psychological Hx Reported Smoking Status: Never smoker Past Alcohol Use History: None Reported Past Drug Use History: None Reported - Past Family History Father Family Medical History: Cancer Mother Family Medical History: Cancer Medications and Allergies Home Medications Medication Instructions Recorded Confirmed Type Aspirin [Adult Low Dose Aspirin EC] 81 mg PO DAILY 02/10/17 10/17/19 History Atorvastatin [Lipitor] 40 mg PO HS 02/10/17 10/17/19 History Ketotifen 0.025% Ophth Soln 1 drop BOTH EYES BID PRN 02/10/17 10/17/19 History [Zaditor] Losartan Potassium [Cozaar] 100 mg PO DAILY 02/10/17 10/17/19 History Magnesium Chloride [Slow Mag] 64 mg PO BID 02/10/17 10/17/19 History Metoprolol Tartrate [Lopressor] 25 mg PO DAILY 02/10/17 10/17/19 History Ubidecarenone [Co Q-10] 100 mg PO HS 02/10/17 10/17/19 History amLODIPine [Norvasc] 5 mg PO DAILY 02/10/17 10/17/19 History Acetaminophen [Tylenol Extra 500 mg PO BID 10/17/19 10/17/19 History Strength] Calcium Carbonate [Calcium] 600 mg PO HS 10/17/19 10/17/19 History Clotrimazole/Betamethasone Dip 1 applic TOPICAL BID 10/17/19 10/17/19 History [Lotrisone Cream] Pantoprazole Sodium [Protonix] 40 mg PO DAILY 10/17/19 10/17/19 History Allergies Allergy/AdvReac Type Severity Reaction Status Date / Time No Known Allergies Allergy Verified 10/17/19 08:21 Physical Exam Vitals: Vital Signs Temp Pulse Pulse Resp BP BP Pulse Ox 10/17/19 10:19 98.2 F 91 18 122/75 95 10/17/19 08:46 98.1 F 96 16 119/72 97 10/17/19 06:39 99 F 105 H 20 131/81 98 Intake and Output 10/16/19 10/17/19 10/17/19 22:59 06:59 14:59 Other: Weight 123.377 kg 123.377 kg On physical examination, patient appears comfortable in no apparent distress. HEAD: Normocephalic, atraumatic. EYES: No scleral icterus. No conjunctival injection. MOUTH: No lesions, tongue midline. NECK: Trachea midline, no gross abnormalities. CHEST: Clear to auscultation with no wheezing or rhonchi appreciated. HEART: Regular rate and rhythm. ABDOMEN: Soft, obese. Bowel sounds are positive. No organomegaly. No guarding or rigidity. EXTREMITIES: No pedal edema. SKIN: No rashes, no jaundice. NEUROLOGIC: Alert and oriented x3. No focal deficits. Results CBC & Chem 7: 10/17/19 18:09 10/17/19 06:45 Labs: Abnormal Lab Results - Last 24 Hours (Table) 10/17/19 10/17/19 10/17/19 Range/Units 06:45 06:45 06:45 WBC 11.2 H (3.8-10.6) k/uL RBC 3.36 L (4.30-5.90) m/uL Hgb 10.5 L (13.0-17.5) gm/dL Hct 32.3 L (39.0-53.0) % Neutrophils # 9.4 H (1.3-7.7) k/uL Chloride 111 H (98-107) mmol/L Carbon Dioxide 19 L (22-30) mmol/L BUN 52 H (9-20) mg/dL Glucose 220 H (74-99) mg/dL Troponin I 0.064 H* (0.000-0.034) ng/mL Total Protein 6.1 L (6.3-8.2) g/dL Albumin 3.4 L (3.5-5.0) g/dL CT scan - abdomen: report reviewed (Computed tomography scan of the abdomen with findings of moderate diverticulosis with possible developing diverticulitis.) Assessment and Plan (1) GI bleed Narrative/Plan: 74-year-old female presenting to the hospital with complaints of cramping lower abdominal pain with associated dark stool with increased frequency. Computed tomography scan of the abdomen showed moderate diverticulosis with possible developing diverticulitis. Currently on antibiotic therapy. Concern is for possible upper GI bleed in the setting of NSAID use. Differential also includes diverticular bleed, AVM or other etiology. Current Visit: Yes Status: Acute Code(s): K92.2 - GASTROINTESTINAL HEMORRHAGE, UNSPECIFIED SNOMED Code(s): 47749604 (2) Anemia associated with acute blood loss Current Visit: Yes Status: Acute Code(s): D62 - ACUTE POSTHEMORRHAGIC ANEMIA SNOMED Code(s): 311902454 (3) Diverticulitis Current Visit: Yes Status: Acute Code(s): K57.92 - DVTRCLI OF INTEST, PART UNSP, W/O PERF OR ABSCESS W/O BLEED SNOMED Code(s): 818621487 Plan: Supportive care Continue monitor CBC and transfuse as needed Continue broad-spectrum antiemetic therapy We'll plan for EGD tomorrow to rule out upper GI bleed Continue Protonix 40 mg IV twice daily Avoid NSAID use Nothing by mouth after midnight Thank you for allowing us to participate in the care of the patient we will continue to follow
[2019-10-17] MEDS: ATORVASTATIN 40 MG TAB PO SCH (20:25)
[2019-10-17] MEDS: PANTOPRAZOLE 40 MG/10 ML VIAL IVP SCH (20:26)
[2019-10-17 20:41] LABS: Glucose,Whole Blood 120 mg/dL (75-99)
[2019-10-18 06:30] LABS: Glucose,Whole Blood 131 mg/dL (75-99)
[2019-10-18] MEDS: INSULIN ASPART (NovoLOG) 100 UNIT/ML VIAL SQ SCH ×3 (06:30→15:30)
[2019-10-18 06:36] LABS: HCT 25.7 % (39.0-53.0); HGB 8.4 gm/dL (13.0-17.5); MCH 30.7 pg (25.0-35.0); MCHC 32.5 g/dL (31.0-37.0); MCV 94.5 fL (80.0-100.0); Mean Platelet Volume 8.2; Platelet Count 204 k/uL (150-450); RBC 2.72 m/uL (4.30-5.90); RDW 14.8 % (11.5-15.5); WBC 12.5 k/uL (3.8-10.6)
[2019-10-18 06:45] LABS: Potassium 4.4 mmol/L (3.5-5.1)
[2019-10-18] MEDS ORDERED: IV FLUID CONTINUATION 1,000 ML IV ONE ×2 (07:06)
[2019-10-18] MEDS ORDERED: PROPOFOL 10 MG/ML 20 ML VIAL IV ONE (07:06)
[2019-10-18] MEDS ORDERED: EPINEPHrine 10 ML SYRINGE (0.1 MG/ML) MISCELLANE ONE (07:23)
--- NOTE | 2019-10-18 07:35 | P.PCN ---
Date of Procedure: 10/18/19 Description of Procedure: BRIEF HISTORY: 74-year-old male with a medical history significant for aortic stenosis, diverticulosis with last colonoscopy in 2017, hypertension, dyslipidemia, BPH and coronary artery disease who presented to the hospital with complaints of abdominal pain and dark-colored stool. The patient reports 2 weeks of abdominal pain. Pain periumbilical as well as below the bellybutton and described as cramping in nature. The patient reports loose dark colored stool. He reports 4 days of loose dark bowel movements with 4-52 bowel movements yesterday prior to presentation. The patient also reports associated weakness. The patient had been doing fine in terms of nausea until yesterday when he reports 2 episodes of vomiting, productive of food getting. No history of peptic ulcer disease. He does believe he had EGD 10 years ago for unknown reasons. He denies any GERD. She does take aspirin daily. Computed tomography scan of the abdomen showed moderate diverticulosis with possible diverticulitis. The patient also takes pain medications daily initially reporting that this was Aleve, he believes that it may be acetaminophen. Laboratory evaluation significant for WBC 11.2, hemoglobin 10.5, platelet count 221,000 with normal liver enzymes. Stool testing positive for blood. PROCEDURE PERFORMED: Esophagogastroduodenoscopy With biopsy, epinephrine injection and Endo Clip placement. PREOPERATIVE DIAGNOSIS: Melena, anemia of acute blood loss, GI bleed. ESTIMATED BLOOD LOSS: Minimal. IV sedation per anesthesia. PROCEDURE: After informed consent was obtained, the patient was brought into the endoscopy unit. IV sedation was administered by Anesthesia under continuous monitoring. Initially the Olympus GIF-190 video endoscope was inserted into the mouth. Esophagus intubated without any difficulty. It was gradually advanced into the stomach and duodenum and carefully examined. The bulb and the second part of the duodenum were significant for a cratered 1 cm duodenal bulb ulcer which was not actively bleeding but did have a small visible vessel but was not actively bleeding this was treated with injection of 7 mL of epinephrine in a circumferential manner and Endo Clip placement 1. A second 1 cm cratered ulcer in the proximal portion of the second part of the duodenum was also noted without active bleeding or high risk stigmata for bleeding. A few small biopsies taken of the duodenum. The scope at this time was withdrawn to the stomach, adequately insufflated with air, and upon careful examination, mucosa of the antrum, body, cardia and the fundus appeared normal, and biopsies of the antrum and body were taken. The scope was then withdrawn into the esophagus. The GE junction was located at 42 cm from the incisors. The esophagus appeared normal. There were no erosions or ulcerations seen and the patient tolerated the procedure well. IMPRESSION: 1. 2 cratered duodenal ulcers one in the bulb were treated with epinephrine injection and Endo Clip placement 1 and one in the second portion of the duodenum. No active bleeding was noted. 2. Biopsies of the duodenum and antrum and body. RECOMMENDATIONS: The findings of this examination were discussed with the patient. Okay for full liquid diet. Continue to monitor hemoglobin and hematocrit. Avoid NSAID use. Continue Protonix IV 40 mg twice daily. If hemoglobin is stable tomorrow with no further signs or symptoms of bleeding and it would be okay to advance to low- fat that time.
[2019-10-18] MEDS: SODIUM CHLORIDE 0.9% 1,000 ML IV SCH ×3 (08:52→20:44)
[2019-10-18] MEDS: PIPERACILLIN-TAZOBACTAM 3.375 GM in SODIUM CHLORIDE 0.9% 100 ML IVPB SCH ×3 (08:58→22:52)
[2019-10-18] MEDS: amLODIPine 5 MG TAB PO SCH (08:59)
[2019-10-18] MEDS: METOPROLOL TARTRATE 25 MG TAB PO SCH (08:59)
[2019-10-18] MEDS: LOSARTAN 50 MG TAB PO SCH (08:59)
[2019-10-18] MEDS: PANTOPRAZOLE 40 MG/10 ML VIAL IVP SCH ×2 (08:59→20:44)
--- NOTE | 2019-10-18 11:03 | P.CRDCN ---
History of Present Illness Consult date: 10/18/19 Requesting physician: Ivet Chin Reason for Consult (text): Known aortic stenosis Chief complaint: Abdominal discomfort with GI bleed History of present illness: This is a 74-year-old gentleman who follows with Dr. Andres Hampton in the office. Has a history of hypertension, hyperlipidemia, coronary artery disease with prior PCI in 2012 to the circumflex, history of moderate aortic stenosis. Patient underwent a transesophageal echocardiographic study in 2016 which revealed moderate aortic stenosis, cardiac catheterization performed at that time did not reveal any significantly obstructive coronary artery disease. Patient presented to the hospital with symptoms of abdominal pain with associated rectal bleeding and black stool. According to the patient he has been off of his Plavix for a one and a half years. A CT of the abdomen and pelvis revealed moderate diverticulosis. An EKG was performed which revealed 2 ulcers in the duodenum which were clipped. Biopsies were obtained. Blood pressure 133/60 with a heart rate in the 70s, respirations 16. 98% on room air. White blood cell count 12.5, hemoglobin 8.4, platelet count 204. Sodium 137, potassium 4.4, BUN 23, creatinine 0.9. Troponin 0.06, 0.13, 0.14. Stool for occult blood positive. Velasco virus not detected. Cardiology consultation was requested for known aortic stenosis as well as mild abnormality in troponin. He was seen and examined this morning by Dr. Puga. Physical examination normal. Patient has an echocardiogram with Doppler study scheduled in the office on November 01 which we will keep. We will not obtain an echo here. No EKG was performed here but telemetry shows a normal sinus rhythm. Past Medical History Past Medical History: Hyperlipidemia, Hypertension, Osteoarthritis (OA), Prostate Disorder Additional Past Medical History / Comment(s): past hx colon polyps, artoic stenosis History of Any Multi-Drug Resistant Organisms: None Reported Past Surgical History: Adenoidectomy, Cholecystectomy, Heart Catheterization, Heart Catheterization With Stent, Orthopedic Surgery, Tonsillectomy Additional Past Surgical History / Comment(s): arthroscopy knee Past Anesthesia/Blood Transfusion Reactions: No Reported Reaction Date of Last Stent Placement:: 2012 Past Psychological History: No Psychological Hx Reported Smoking Status: Never smoker Past Alcohol Use History: None Reported Past Drug Use History: None Reported - Past Family History Father Family Medical History: Cancer Mother Family Medical History: Cancer Medications and Allergies Home Medications Medication Instructions Recorded Confirmed Type Aspirin [Adult Low Dose Aspirin EC] 81 mg PO DAILY 02/10/17 10/17/19 History Atorvastatin [Lipitor] 40 mg PO HS 02/10/17 10/17/19 History Ketotifen 0.025% Ophth Soln 1 drop BOTH EYES BID PRN 02/10/17 10/17/19 History [Zaditor] Losartan Potassium [Cozaar] 100 mg PO DAILY 02/10/17 10/17/19 History Magnesium Chloride [Slow Mag] 64 mg PO BID 02/10/17 10/17/19 History Metoprolol Tartrate [Lopressor] 25 mg PO DAILY 02/10/17 10/17/19 History Ubidecarenone [Co Q-10] 100 mg PO HS 02/10/17 10/17/19 History amLODIPine [Norvasc] 5 mg PO DAILY 02/10/17 10/17/19 History Acetaminophen [Tylenol Extra 500 mg PO BID 10/17/19 10/17/19 History Strength] Calcium Carbonate [Calcium] 600 mg PO HS 10/17/19 10/17/19 History Clotrimazole/Betamethasone Dip 1 applic TOPICAL BID 10/17/19 10/17/19 History [Lotrisone Cream] Pantoprazole Sodium [Protonix] 40 mg PO DAILY 10/17/19 10/17/19 History Allergies Allergy/AdvReac Type Severity Reaction Status Date / Time No Known Allergies Allergy Verified 10/17/19 08:21 Physical Exam Vitals: Vital Signs Temp Pulse Resp BP Pulse Ox 10/18/19 08:00 98.5 F 71 16 133/65 98 10/18/19 04:00 98.4 F 80 16 125/71 99 10/18/19 03:45 89 18 10/18/19 00:00 89 18 127/66 98 10/17/19 20:00 98.1 F 97 18 133/77 100 10/17/19 16:00 97.9 F 95 18 108/60 98 Intake and Output 10/17/19 10/18/19 10/18/19 22:59 06:59 14:59 Intake Total 360 600 200 Output Total 380 Balance 360 220 200 Intake: IV 600 200 Sodium Chloride 0.9% 1, 600 000 ml @ 130 mls/hr IV . Q7H42M [facility] Rx#:[id number] Oral 360 Output: Urine 380 Other: Voiding Method Toilet # Voids 2 # Bowel Movements 3 Weight 126.7 kg PHYSICAL EXAMINATION: GENERAL: 74-year-old gentleman in no acute distress at the time of my examination HEENT: Head is atraumatic, normocephalic. Pupils equal, round. Sclera anicteric. Conjunctiva are clear. Mucous membranes of the mouth are moist. Neck is supple. There is no elevated jugular venous pressure.No carotid bruit is heard. HEART EXAMINATION: Heart S1, S2 normal. No murmur or gallop heard. CHEST EXAMINATION: Lungs are clear to auscultation and precussion. No chest wall tenderness is noted on palpation or with deep breathing. ABDOMEN: Soft, nontender. Bowel sounds are heard. No organomegaly noted. EXTREMITIES: 2+ peripheral pulses with no evidence of peripheral edema and no calf tenderness noted. NEUROLOGIC patient is awake, alert and oriented 3 . Results 10/18/19 05:56 10/18/19 05:56 Cardiac Enzymes 10/17/19 10/17/19 Range/Units 14:02 18:09 Troponin I 0.139 H* 0.149 H* (0.000-0.034) ng/mL Coagulation 10/17/19 Range/Units 10:39 APTT 22.3 (22.0-30.0) sec CBC 10/17/19 10/17/19 10/18/19 Range/Units 10:39 18:09 05:56 WBC 11.5 H 10.7 H 12.5 H (3.8-10.6) k/uL RBC 3.13 L 2.85 L 2.72 L (4.30-5.90) m/uL Hgb 9.6 L 8.6 L 8.4 L (13.0-17.5) gm/dL Hct 30.8 L 27.4 L 25.7 L (39.0-53.0) % Plt Count 211 191 204 (150-450) k/uL Comprehensive Metabolic Panel 10/18/19 Range/Units 05:56 Sodium 137 (137-145) mmol/L Potassium 4.4 (3.5-5.1) mmol/L Chloride 109 H (98-107) mmol/L Carbon Dioxide 23 (22-30) mmol/L BUN 23 H (9-20) mg/dL Creatinine 0.99 (0.66-1.25) mg/dL Glucose 104 H (74-99) mg/dL Calcium 8.0 L (8.4-10.2) mg/dL Current Medications Generic Name Dose Route Start Last Admin Trade Name Freq PRN Reason Stop Dose Admin Acetaminophen 650 mg 10/17/19 13:06 Tylenol Tab PO Q6HR PRN Mild Pain or Fever > 100.5 Hydrocodone Bitart/Acetaminophen 1 each 10/17/19 13:06 [place] 5-325 PO Q4HR PRN Moderate Pain Amlodipine Besylate 5 mg 10/18/19 09:00 10/18/19 08:59 Norvasc PO 5 mg DAILY ANAYELI Administration Atorvastatin Calcium 40 mg 10/17/19 21:00 10/17/19 20:25 Lipitor PO 40 mg HS ANAYELI Administration Sodium Chloride 1,000 mls @ 130 mls/hr 10/17/19 07:00 10/18/19 08:52 Saline 0.9% IV Not Given .Q7H42M ANAYELI Piperacillin Sod/Tazobactam 100 mls @ 25 mls/hr 10/17/19 16:00 10/18/19 08:58 Sod 3.375 gm/ Sodium Chloride IVPB 25 mls/hr Q8HR ANAYELI Administration Insulin Aspart 0 unit 10/17/19 17:30 10/18/19 06:30 Novolog SQ Not Given AC-TID [facility] Protocol Losartan Potassium 100 mg 10/18/19 09:00 10/18/19 08:59 Cozaar PO 100 mg DAILY ANAYELI Administration Metoprolol Tartrate 25 mg 10/18/19 09:00 10/18/19 08:59 Lopressor PO 25 mg DAILY ANAYELI Administration Morphine Sulfate 2 mg 10/17/19 13:06 Morphine Sulfate (Inj) IV Q4HR PRN Severe Pain Naloxone HCl 0.2 mg 10/17/19 07:35 Narcan IV Q2M PRN Opioid Reversal Ondansetron HCl 4 mg 10/17/19 13:06 Zofran IVP Q8HR PRN Nausea And Vomiting Pantoprazole Sodium 40 mg 10/17/19 21:00 10/18/19 08:59 Protonix IVP 40 mg BID ANAYELI Administration Intake and Output 10/17/19 10/18/19 10/18/19 22:59 06:59 14:59 Intake Total 360 600 200 Output Total 380 Balance 360 220 200 Intake: IV 600 200 Sodium Chloride 0.9% 1, 600 000 ml @ 130 mls/hr IV . Q7H42M [facility] Rx#:[id number] Oral 360 Output: Urine 380 Other: Voiding Method Toilet # Voids 2 # Bowel Movements 3 Weight 126.7 kg 10/18/19 05:56 10/18/19 05:56 EKG Interpretations (text) EKG was not performed. Assessment and Plan Plan: Assessment and plan #1 abdominal discomfort with GI bleeding, stool for occult positive. #2 coronary artery disease with prior circumflex stenting in 2012 #3 hypertension #4 hyperlipidemia #5 moderate aortic stenosis #6 mild abnormality in troponin, not consistent with acute coronary syndrome with no significant rise and fall pattern. Plan We will not obtain an echo this admission, the patient is actually scheduled to undergo an echo with Dr. MAXIM Hampton in the office on November 01, we will keep that appointment. We will obtain an EKG. Continue the patient's current medications. He is stable from a cardiac perspective. DNP note has been reviewed, I agree with a documented findings and plan of care. Patient was seen and examined.
[2019-10-18 11:42] LABS: Glucose,Whole Blood 122 mg/dL (75-99)
[2019-10-18 14:42] LABS: Hemoglobin A1C 5.5 % (4.0-6.0)
--- NOTE | 2019-10-18 14:57 | P.PN ---
Subjective Patient is doing fairly well today. He denies any abdominal pain. He informed me that he had one episode of black stool with a small amount of stool this morning. No bright red blood. No dizziness or lightheadedness. Objective - Vital Signs Vital signs: Vital Signs Temp 98.1 F 10/18/19 11:43 Pulse 64 10/18/19 11:43 Resp 18 10/18/19 11:43 BP 98/71 10/18/19 11:43 Pulse Ox 99 10/18/19 11:43 Intake & Output 10/17/19 10/18/19 10/18/19 18:59 06:59 18:59 Intake Total 360 600 200 Output Total 380 Balance 360 220 200 Weight 123.377 kg 126.7 kg Intake: IV 600 200 Sodium Chloride 0.9% 1, 600 000 ml @ 130 mls/hr IV . Q7H42M [facility] Rx#:[id number] Oral 360 Output: Urine 380 Other: Voiding Method Toilet # Voids 2 # Bowel Movements 3 - Exam General: The patient is awake and alert, in no distress Eye: there is normal conjunctiva bilaterally. Neck: The neck is supple, there is no JVD. Cardiovascular: Normal S1-S2, no S3-S4, no murmurs. Respiratory: Lungs clear to auscultation bilaterally Gastrointestinal: Abdomen is soft, nontender Musculoskeletal: There is no pedal edema. Neurological:. Speech is normal. Skin: Skin is warm and dry - Labs CBC & Chem 7: 10/18/19 05:56 10/18/19 05:56 Labs: Abnormal Lab Results - Last 24 Hours (Table) 10/17/19 10/17/19 10/17/19 Range/Units 14:02 16:40 18:09 WBC 10.7 H (3.8-10.6) k/uL RBC 2.85 L (4.30-5.90) m/uL Hgb 8.6 L (13.0-17.5) gm/dL Hct 27.4 L (39.0-53.0) % Chloride (98-107) mmol/L BUN (9-20) mg/dL Glucose (74-99) mg/dL POC Glucose (mg/dL) 130 H (75-99) mg/dL Calcium (8.4-10.2) mg/dL Troponin I 0.139 H* (0.000-0.034) ng/mL 10/17/19 10/17/19 10/18/19 Range/Units 18:09 20:40 05:56 WBC 12.5 H (3.8-10.6) k/uL RBC 2.72 L (4.30-5.90) m/uL Hgb 8.4 L (13.0-17.5) gm/dL Hct 25.7 L (39.0-53.0) % Chloride (98-107) mmol/L BUN (9-20) mg/dL Glucose (74-99) mg/dL POC Glucose (mg/dL) 120 H (75-99) mg/dL Calcium (8.4-10.2) mg/dL Troponin I 0.149 H* (0.000-0.034) ng/mL 10/18/19 10/18/19 10/18/19 Range/Units 05:56 06:28 11:40 WBC (3.8-10.6) k/uL RBC (4.30-5.90) m/uL Hgb (13.0-17.5) gm/dL Hct (39.0-53.0) % Chloride 109 H (98-107) mmol/L BUN 23 H (9-20) mg/dL Glucose 104 H (74-99) mg/dL POC Glucose (mg/dL) 131 H 122 H (75-99) mg/dL Calcium 8.0 L (8.4-10.2) mg/dL Troponin I (0.000-0.034) ng/mL Assessment and Plan Assessment: Acute blood loss anemia with upper GI bleed -Status post EGD with 2 duodenal ulcers noted status post epinephrine injection and clipping. -Diet as directed by GI -Hemoglobin stable we'll continue to monitor and transfuse as needed Aortic stenosis -Cardiology consulted, appreciate recommendation Hypertension, controlled -Resume home metoprolol and Cozaar -Follow blood pressures Dyslipidemia -Statin therapy Hyperglycemia -A1c 5.5 no evidence of diabetes Obesity with BMI 34 -Outpatient structured weight loss Chronic: Arthritis Coronary artery disease BPH Degenerative disc disease Surrogate decision-maker: CODE STATUS:Full Code DVT prophylaxis: SCDs Discussed with: patient, nursing, Anticipated discharge date: Tomorrow Anticipated discharge place: home
[2019-10-18 20:24] LABS: Glucose,Whole Blood 107 mg/dL (75-99)
[2019-10-18] MEDS: ATORVASTATIN 40 MG TAB PO SCH (20:44)
[2019-10-19] MEDS: SODIUM CHLORIDE 0.9% 1,000 ML IV SCH ×2 (05:09→12:56)
[2019-10-19 06:07] LABS: Glucose,Whole Blood 102 mg/dL (75-99)
[2019-10-19 06:13] LABS: Basophils % (A) 1 %; Eosinophils # (A) 0.3 k/uL (0-0.7); Eosinophils % (A) 3 %; HCT 25.4 % (39.0-53.0); HGB 8.2 gm/dL (13.0-17.5); Hypochromasia Slight; Lymphocytes # (A) 2.8 k/uL (1.0-4.8); Lymphocytes % (A) 30 %; MCH 30.7 pg (25.0-35.0); MCHC 32.2 g/dL (31.0-37.0); MCV 95.4 fL (80.0-100.0); Mean Platelet Volume 7.9; Monocytes # (A) 0.5 k/uL (0-1.0); Monocytes % (A) 5 %; Neutrophils # (A) 5.6 k/uL (1.3-7.7); Neutrophils % (A) 60 %; Platelet Count 195 k/uL (150-450); RBC 2.66 m/uL (4.30-5.90); RDW 14.7 % (11.5-15.5); WBC 9.4 k/uL (3.8-10.6)
[2019-10-19] MEDS: INSULIN ASPART (NovoLOG) 100 UNIT/ML VIAL SQ SCH ×2 (06:20→12:56)
[2019-10-19 06:28] LABS: Calcium 8.2 mg/dL (8.4-10.2); Potassium 4.1 mmol/L (3.5-5.1)
[2019-10-19 07:57] VITALS: BP 120/67; PULSE 70; RESP 16; TEMP 98.6
[2019-10-19] MEDS: LOSARTAN 50 MG TAB PO SCH (07:58)
[2019-10-19] MEDS: METOPROLOL TARTRATE 25 MG TAB PO SCH (07:58)
[2019-10-19] MEDS: amLODIPine 5 MG TAB PO SCH (07:58)
[2019-10-19] MEDS: PIPERACILLIN-TAZOBACTAM 3.375 GM in SODIUM CHLORIDE 0.9% 100 ML IVPB SCH (07:58)
[2019-10-19] MEDS: PANTOPRAZOLE 40 MG/10 ML VIAL IVP SCH (07:58)
--- NOTE | 2019-10-19 11:02 | P.DS ---
Providers Date of admission: 10/17/19 08:16 Expected date of discharge: 10/19/19 Attending physician: Ivet Chin DO Consults: 10/17/19 07:35 Consult Physician Routine Consulting Provider: Giovanni Rios Consult Reason/Comments: GI bleed-acute Do you want consulting provider notified?: Yes 10/17/19 13:23 Consult Physician Routine Consulting Provider: Marshall Hampton Consult Reason/Comments: Aortic stenosis Do you want consulting provider notified?: Yes Primary care physician: Marques Ashley [place] [facility] Course: This is a 74-year-old male with complex past medical history noted below who presented to the emergency room with abdominal pain and melena. Patient was evaluated in the ER and admitted to the hospital for further management of his medical problems noted below. Acute blood loss anemia with upper GI bleed -Status post EGD with 2 duodenal ulcers noted status post epinephrine injection and clipping. -Hemoglobin stabilized around 8.4 -No evidence of ongoing bleed -Continue Protonix 40 mg twice daily for 2 weeks and once daily after -Follow up with GI in the office as directed for 2 weeks for pathology report -Hold aspirin for 5 days Aortic stenosis -Cardiology consulted, appreciate recommendation Hypertension, controlled -Resume home regimen Dyslipidemia -Statin therapy Hyperglycemia -A1c 5.5 no evidence of diabetes Obesity with BMI 34 -Outpatient structured weight loss Chronic: Arthritis Coronary artery disease BPH Degenerative disc disease Patient will be discharged home in a stable condition. For further details about this hospitalization please refer to the electronic chart. Patient Condition at Discharge: Fair Plan - Discharge Summary New Discharge Prescriptions: Continue Ketotifen 0.025% Ophth Soln [Zaditor] 1 drop BOTH EYES BID PRN PRN Reason: Eye Irritation Magnesium Chloride [Slow-Mag] 64 mg PO BID Atorvastatin [Lipitor] 40 mg PO HS Metoprolol Tartrate [Lopressor] 25 mg PO DAILY amLODIPine [Norvasc] 5 mg PO DAILY Losartan Potassium [Cozaar] 100 mg PO DAILY Ubidecarenone [Co Q-10] 100 mg PO HS Calcium Carbonate [Calcium] 600 mg PO HS Acetaminophen [Tylenol Extra Strength] 500 mg PO BID Clotrimazole/Betamethasone Dip [Lotrisone Cream] 1 applic TOPICAL BID Aspirin [Adult Low Dose Aspirin EC] 81 mg PO DAILY #0 Changed Pantoprazole Sodium [Protonix] 40 mg PO BID #60 tab Discharge Medication List Atorvastatin [Lipitor] 40 mg PO HS 02/10/17 [History] Ketotifen 0.025% Ophth Soln [Zaditor] 1 drop BOTH EYES BID PRN 02/10/17 [History] Losartan Potassium [Cozaar] 100 mg PO DAILY 02/10/17 [History] Magnesium Chloride [Slow-Mag] 64 mg PO BID 02/10/17 [History] Metoprolol Tartrate [Lopressor] 25 mg PO DAILY 02/10/17 [History] Ubidecarenone [Co Q-10] 100 mg PO HS 02/10/17 [History] amLODIPine [Norvasc] 5 mg PO DAILY 02/10/17 [History] Acetaminophen [Tylenol Extra Strength] 500 mg PO BID 10/17/19 [History] Calcium Carbonate [Calcium] 600 mg PO HS 10/17/19 [History] Clotrimazole/Betamethasone Dip [Lotrisone Cream] 1 applic TOPICAL BID 10/17/19 [History] Aspirin [Adult Low Dose Aspirin EC] 81 mg PO DAILY #0 10/19/19 [Rx] Pantoprazole Sodium [Protonix] 40 mg PO BID #60 tab 10/19/19 [Rx] Follow up Appointment(s)/Referral(s): Marques Ashley MD [Primary Care Provider] - 1-2 days Giovanni Rios MD [STAFF PHYSICIAN] - 2 Weeks Discharge Disposition: HOME SELF-CARE Plan of Treatment: Do not take aspirin for the next 4 days. May resume aspirin 81 mg daily on Wednesday10/22/2019
[2019-10-19 11:27] LABS: Glucose,Whole Blood 107 mg/dL (75-99)
--- NOTE | 2019-10-19 12:33 | P.PN ---
Subjective Progress Note Date: 10/19/19 This is a 74-year-old gentleman who follows with Dr. Andres Hampton in the office. Has a history of hypertension, hyperlipidemia, coronary artery disease with prior PCI in 2013 to the circumflex, history of moderate aortic stenosis. Patient underwent a transesophageal echocardiographic study in 2016 which re vealed moderate aortic stenosis, cardiac catheterization performed at that time did not reveal any significantly obstructive coronary artery disease. Patient presented to the hospital with symptoms of abdominal pain with associated rectal bleeding and black stool. According to the patient he has been off of his Plavix for a one and a half years. A CT of the abdomen and pelvis revealed moderate diverticulosis. An EKG was performed which revealed 2 ulcers in the duodenum which were clipped. Biopsies were obtained. Blood pressure 133/60 with a heart rate in the 70s, respirations 16. 98% on room air. White blood cell count 12.5, hemoglobin 8.4, platelet count 204. Sodium 137, potassium 4.4, BUN 23, creatinine 0.9. Troponin 0.06, 0.13, 0.14. Stool for occult blood positive. Velasco virus not detected. Cardiology consultation was requested for known aortic stenosis as well as mild abnormality in troponin. He was seen and examined this morning by Dr. Puga. Physical examination normal. Patient has an echocardiogram with Doppler study scheduled in the office on November 01 which we will keep. We will not obtain an echo here. No EKG was performed here but telemetry shows a normal sinus rhythm. 10/19/2019 Patient seen and examined this morning, overall doing well. Anticipating a discharged home today. Blood Pressure 120/60 with a heart rate in the 70s, 99% on room air. White blood cell count 9.4, hemoglobin 8.2, platelet count 195. Sodium 138, potassium 4.1, BUN 15 and creatinine 1.0. Objective - Vital Signs Vital signs: Vital Signs Temp 98.6 F 10/19/19 07:53 Pulse 70 10/19/19 07:55 Resp 16 10/19/19 07:55 BP 120/67 10/19/19 07:53 Pulse Ox 99 10/19/19 07:53 Intake & Output 10/18/19 10/19/19 10/19/19 18:59 06:59 18:59 Intake Total 320 900 476 Balance 320 900 476 Weight 127 kg Intake: IV 200 900 Sodium Chloride 0.9% 1, 900 000 ml @ 130 mls/hr IV . Q7H42M [facility] Rx#:[id number] Oral 120 476 Other: Voiding Method Toilet Toilet # Voids 2 - Exam PHYSICAL EXAMINATION: GENERAL: 74-year-old gentleman in no acute distress at the time of my examination HEENT: Head is atraumatic, normocephalic. Pupils equal, round. Sclera anicteric. Conjunctiva are clear. Mucous membranes of the mouth are moist. Neck is supple. There is no elevated jugular venous pressure.No carotid bruit is heard. HEART EXAMINATION: Heart S1, S2 normal. Systolic ejection murmur is heard. CHEST EXAMINATION: Lungs are clear to auscultation and precussion. No chest wall tenderness is noted on palpation or with deep breathing. ABDOMEN: Soft, nontender. Bowel sounds are heard. No organomegaly noted. EXTREMITIES: 2+ peripheral pulses with no evidence of peripheral edema and no calf tenderness noted. NEUROLOGIC patient is awake, alert and oriented 3 - Labs CBC & Chem 7: 10/19/19 05:38 10/19/19 05:38 Labs: Abnormal Lab Results - Last 24 Hours (Table) 10/18/19 10/19/19 10/19/19 Range/Units 20:22 05:38 05:38 RBC 2.66 L (4.30-5.90) m/uL Hgb 8.2 L (13.0-17.5) gm/dL Hct 25.4 L (39.0-53.0) % Chloride 108 H (98-107) mmol/L POC Glucose (mg/dL) 107 H (75-99) mg/dL Calcium 8.2 L (8.4-10.2) mg/dL 10/19/19 10/19/19 Range/Units 06:04 11:25 RBC (4.30-5.90) m/uL Hgb (13.0-17.5) gm/dL Hct (39.0-53.0) % Chloride (98-107) mmol/L POC Glucose (mg/dL) 102 H 107 H (75-99) mg/dL Calcium (8.4-10.2) mg/dL Assessment and Plan Plan: Assessment and plan #1 abdominal discomfort with GI bleeding, stool for occult positive. #2 coronary artery disease with prior circumflex stenting in 2013 #3 hypertension #4 hyperlipidemia #5 moderate aortic stenosis #6 mild abnormality in troponin, not consistent with acute coronary syndrome with no significant rise and fall pattern. Plan From cardiology's perspective, the patient may be able to be discharged home today. He has an echo scheduled in the office later this month which we recommend that he continue. Follow-up appointment with Dr. Andres Hampton. DNP note has been reviewed, I agree with a documented findings and plan of care. Patient was seen and examined.
--- NOTE | 2019-10-19 13:45 | P.PN ---
Subjective Progress Note Date: 10/19/19 Principal diagnosis: Anemia acute blood loss, melena, duodenal ulcer Patient seen lying in bed reporting that he is tolerating diet. No signs or symptoms of GI bleeding. No abdominal pain. Objective - Vital Signs Vital signs: Vital Signs Temp 98.6 F 10/19/19 07:53 Pulse 70 10/19/19 07:55 Resp 16 10/19/19 07:55 BP 120/67 10/19/19 07:53 Pulse Ox 99 10/19/19 07:53 Intake & Output 10/18/19 10/19/19 10/19/19 18:59 06:59 18:59 Intake Total 320 900 476 Balance 320 900 476 Weight 127 kg Intake: IV 200 900 Sodium Chloride 0.9% 1, 900 000 ml @ 130 mls/hr IV . Q7H42M [facility] Rx#:[id number] Oral 120 476 Other: Voiding Method Toilet Toilet # Voids 2 - Exam On physical examination, patient appears comfortable in no apparent distress. HEAD: Normocephalic, atraumatic. EYES: No scleral icterus. No conjunctival injection. MOUTH: No lesions, tongue midline. NECK: Trachea midline, no gross abnormalities. ABDOMEN: Soft, obese. Bowel sounds are positive. No organomegaly. No guarding or rigidity. EXTREMITIES: No pedal edema. SKIN: No rashes, no jaundice. NEUROLOGIC: Alert and oriented x3. No focal deficits. - Labs CBC & Chem 7: 10/19/19 05:38 10/19/19 05:38 Labs: Abnormal Lab Results - Last 24 Hours (Table) 10/18/19 10/19/19 10/19/19 Range/Units 20:22 05:38 05:38 RBC 2.66 L (4.30-5.90) m/uL Hgb 8.2 L (13.0-17.5) gm/dL Hct 25.4 L (39.0-53.0) % Chloride 108 H (98-107) mmol/L POC Glucose (mg/dL) 107 H (75-99) mg/dL Calcium 8.2 L (8.4-10.2) mg/dL 10/19/19 10/19/19 Range/Units 06:04 11:25 RBC (4.30-5.90) m/uL Hgb (13.0-17.5) gm/dL Hct (39.0-53.0) % Chloride (98-107) mmol/L POC Glucose (mg/dL) 102 H 107 H (75-99) mg/dL Calcium (8.4-10.2) mg/dL Assessment and Plan (1) GI bleed Narrative/Plan: 74-year-old female presenting to the hospital with complaints of cramping lower abdominal pain with associated dark stool with increased frequency. Computed to mography scan of the abdomen showed moderate diverticulosis with possible developing diverticulitis. Currently on antibiotic therapy. Concern is for possible upper GI bleed in the setting of NSAID use. EGD was performed and significant for 2 large cratered ulcers in the duodenum. Current Visit: Yes Status: Acute Code(s): K92.2 - GASTROINTESTINAL HEMORRHAGE, UNSPECIFIED SNOMED Code(s): 38553010 (2) Anemia associated with acute blood loss Current Visit: Yes Status: Acute Code(s): D62 - ACUTE POSTHEMORRHAGIC ANEMIA SNOMED Code(s): 893503565 (3) Diverticulitis Current Visit: Yes Status: Acute Code(s): K57.92 - DVTRCLI OF INTEST, PART UNSP, W/O PERF OR ABSCESS W/O BLEED SNOMED Code(s): 896169142 Plan: Supportive care Continue monitor CBC and transfuse as needed Follow up with GI in 2-3 weeks Low fiber diet Continue Protonix 40 mg by mouth twice daily Avoid NSAID use Thank you for allowing us to participate in the care of the patient we will continue to follow
== END 2019-10-19 14:14 | disposition home or self-care (01) | DRG 378 ==
LOC: EC 06:38 → 3SCARD 08:16
PROVIDERS: ADMIT Internal Medicine; ATTEND Internal Medicine
PROC: 0DB98ZX Excision of Duodenum, Via Natural or Artificial Opening Endoscopic, Diagnostic (ICD-10-PCS; principal; 2019-10-18 07:00)
PROC: 0W3P8ZZ Control Bleeding in Gastrointestinal Tract, Via Natural or Artificial Opening Endoscopic (ICD-10-PCS; principal; 2019-10-18 07:00)
PROC: 0DB78ZX Excision of Stomach, Pylorus, Via Natural or Artificial Opening Endoscopic, Diagnostic (ICD-10-PCS; principal; 2019-10-18 07:00)
PROC: 3E0G8GC Introduction of Other Therapeutic Substance into Upper GI, Via Natural or Artificial Opening Endoscopic (ICD-10-PCS; principal; 2019-10-18 07:00)
PROC: 0DB68ZX Excision of Stomach, Via Natural or Artificial Opening Endoscopic, Diagnostic (ICD-10-PCS; principal; 2019-10-18 07:00)
DX: K26.4 Chronic or unspecified duodenal ulcer with hemorrhage (principal); D62 Acute posthemorrhagic anemia; K57.33 Diverticulitis of large intestine without perforation or abscess with bleeding; Z11.59 Encounter for screening for other viral diseases; E66.9 Obesity, unspecified; E78.5 Hyperlipidemia, unspecified; I10 Essential (primary) hypertension; I25.10 Atherosclerotic heart disease of native coronary artery without angina pectoris; I35.0 Nonrheumatic aortic (valve) stenosis; M19.90 Unspecified osteoarthritis, unspecified site; N40.0 Benign prostatic hyperplasia without lower urinary tract symptoms; R73.9 Hyperglycemia, unspecified; R79.89 Other specified abnormal findings of blood chemistry; Z68.34 Body mass index [BMI] 34.0-34.9, adult; Z79.82 Long term (current) use of aspirin; Z79.899 Other long term (current) drug therapy; Z87.19 Personal history of other diseases of the digestive system; Z95.5 Presence of coronary angioplasty implant and graft; Z85.72 Personal history of non-Hodgkin lymphomas; Z86.010 Personal history of colon polyps; Z80.9 Family history of malignant neoplasm, unspecified
CPT/HCPCS: 36415; 43239; 43255; 74177; 80048; 80053; 82272; 83036; 84484; 85025; 85027; 85730; 86850; 86900; 86901; 87635; 88305; 96361; 96365; 96375; 99285

== ENCOUNTER → 2019-12-20 | Outpatient (CLI) | payer MEDICARE, BC ==
[2019-12-20 14:47] LABS: HCT 43.1 % (39.0-53.0); HGB 13.2 gm/dL (13.0-17.5); Hypochromasia Slight; MCH 27.4 pg (25.0-35.0); MCHC 30.7 g/dL (31.0-37.0); Mean Platelet Volume 8.2; Platelet Count 228 k/uL (150-450); RBC 4.83 m/uL (4.30-5.90); RDW 13.9 % (11.5-15.5); WBC 12.2 k/uL (3.8-10.6)
[2019-12-20 14:55] LABS: Potassium 4.6 mmol/L (3.5-5.1)
[2019-12-20 14:58] LABS: MCV 89.3 fL (80.0-100.0)
== END | disposition home or self-care (01) ==
LOC: LABPAT 13:13
PROVIDERS: ATTEND Internal Medicine Interventional Cardiology
DX: Z01.818 Encounter for other preprocedural examination (principal); I35.9 Nonrheumatic aortic valve disorder, unspecified
CPT/HCPCS: 36415; 80051; 82565; 84520; 85027

== ENCOUNTER → 2019-12-26 | Day surgery (SDC) | payer MEDICARE, BC ==
[2019-12-22 10:15] VITALS: BMI 34.3
[~2019-12-26] MED LIST changes: +ALPRAZolam 0.25 MG TAB PO PRN; +ALPRAZolam 0.5 MG TAB PO PRN; +ASPIRIN 325 MG TAB PO STA; +ATORVASTATIN 80 MG TAB PO STA; +HEPARIN SODIUM 1,000 UN/ML (10ML VL) ONE; +IOPAMIDOL-370 100ML BTL INJ ONE; +IOPAMIDOL-370 50ML BTL INJ ONE; +IV FLUID CONTINUATION 1,000 ML IV ONE; -LACTATED RINGERS 1,000 ML IV SCH; -LIDOCAINE 1% 20 ML VIAL (10MG/ML) FOR IV START INTRADERMA PRN; +LIDOCAINE 1% INJ 10MG/ML (20 ML MDV) ONE; +LIDOCAINE 1% INJ 10MG/ML (20 ML MDV) SQ ONE; +MIDAZOLAM 2 MG/2 ML VIAL IV ONE; +NITROGLYCERIN SL TABS 0.4 MG TAB SUBLINGUAL PRN; +SODIUM CHLORIDE 0.9% 1,000 ML IV SCH; +SODIUM CHLORIDE 0.9% 1,000 ML in EMPTY BAG 1 BAG IV ONE; +SODIUM CHLORIDE 0.9% 500 ML 500 ML IV ONE; +VERAPAMIL 2.5 MG/ML 2 ML AMP ONE; +VERAPAMIL SYRINGE (5 MG/10 ML) INTRAARTER ONE; +fentaNYL (PF) 50 MCG/ML 2 ML AMP IV ONE; +fentaNYL (PF) 50 MCG/ML 2 ML AMP ONE
[2019-12-26 07:03] VITALS: TEMP 98.4
[2019-12-26] MEDS: BENZOCAINE SPRAY 1 CAN TOPICAL ONE ×2 (07:25→07:34)
[2019-12-26] MEDS: MIDAZOLAM 2 MG/2 ML VIAL IV ONE ×2 (07:44→07:45)
[2019-12-26 10:39] VITALS: RESP 12
--- NOTE | 2019-12-26 11:50 | CC ---
CARDIAC CATHETERIZATION REPORT DATE OF SERVICE: 12/26/2019. PROCEDURE: Left heart catheterization, coronary angiography and aortography. PERFORMED BY: Dr. Dave Hampton. Moderate conscious sedation time was 26 minutes. Patient was administered Versed. Oxygen saturation, hemodynamics and EKG were monitored closely. CLINICAL INFORMATION: Mr. Matthieu Lara is a 74-year-old gentleman with a known history of aortic stenosis, probable trileaflet valve but I am not sure if it is really trileaflet or bileaflet. He also has hypertension, CAD, prior PCI of circumflex in March 2013. He has by noninvasive studies increasing gradient and also some exertional shortness of breath. He was therefore advised coronary angiography and a transesophageal echo and was brought in for the procedure electively after due discussion regarding risks, benefits, and options. PROCEDURE NOTE: Under local anesthesia and strict aseptic precautions, a 6-H[place]er introducer was placed in the right radial artery. Standard Lynsey catheters were used to perform coronary angiography and a pigtail catheter was used to check the cultures and the same right Lynsey catheter was used to check LV pressures. I used a pigtail catheter to perform an aortogram in the SINHAL[place] projection. Patient tolerated the procedure well. The sheath was taken out and TR band applied as per protocol. He was sent to the emergency room in a stable condition. CARDIAC CATHETER FINDINGS: The left end-diastolic pressure were about 14 mmHg. There was a gradient across the aortic valve on pullback was about 95 mmHg. CORONARY ANGIOGRAPHY FINDINGS: RIGHT CORONARY ARTERY: This is a large dominant vessel, has no significant disease. There are minor irregularities throughout the study. Bifurcates into a large PDA and PLV. PLV has distally some diffuse disease. No significant stenosis is noted in the entire RCA which is a dominant vessel. The distal aspect of the PDA has some diffuse disease. LEFT MAIN CORONARY ARTERY: Short patent disease-free vessel that bifurcates into LAD and circumflex. LEFT ANTERIOR DESCENDING CORONARY ARTERY: Multiple angiograms were obtained in various projections. LAD is a good-sized vessel. It gives off septal and diagonal branch in the midportion. At the origin of the diagonal and septal branches, there is about a 40% narrowing in the LAD. Then the caliber improves. it runs all the way to the apex supplying a sizable amount of myocardium. Mid LAD therefore has about a 35% to 40% stenosis noted. The diagonal. There is a first diagonal branch which also has about a 40% to 50% narrowing in the body of the vessel. LEFT POSTERIOR CIRCUMFLEX CORONARY: This vessel was stented in 2012. The mid circumflex which was stented is widely patent with good flow beyond the stented segment before it bifurcates. There is about a 40% narrowing. Then it divides into 2 branches, both of which have minor irregularities. No significant disease. The nondominant circumflex therefore is patent at the stented site. Distally, there is about a 35% to 40% narrowing but no significant disease. AORTOGRAM: This was performed in [place] projection, revealed an aorta in normal size. There is moderate aortic insufficiency noted. FINAL IMPRESSION: This patient has severe aortic stenosis, a right dominant system with normal filling pressures and has widely patent circumflex at the site of stenting and a 40% mid LAD and a 35% circumflex lesion. Stented segment in mid circumflex is widely patent. There is moderate aortic insufficiency and severe aortic stenosis. RECOMMENDATIONS: Findings were discussed with the patient and . I will discuss further in the office and consider an opinion from a structural heart team at the [facility] at the patient's request. He will require surgical or percutaneous aortic valve replacement. He does not have any significant obstructive CAD that would require intervention. I discussed my thoughts in detail with the patient and . I expect he will be discharged later on today if he remains stable. MMODL / IJN: [id number] /
[2019-12-26 15:50] VITALS: BP 119/62; PULSE 54
--- NOTE | 2019-12-27 08:24 | P.TEE ---
Indications for Procedure(s): Assessment of aortic stenosis Date of Procedure: 12/26/19 Preoperative Diagnosis: Severe aortic stenosis Postoperative Diagnosis: Moderate to severe aortic stenosis, bicuspid aortic valve and moderate aortic regurgitation Procedure(s) Performed: [facility] Description of Procedure(s): INDICATION: Assessment of aortic valve function CONSENT:. Verbal informed consent was obtained from patient PROCEDURE:, Patient was brought to the lab in a fasting state. He was prepped and draped in the usual fashion. The throat was sprayed with Hurricaine. Patient was given IV sedation with 1.5 mg of Versed and 37.5 mics of fentanyl. A lubricated Omni probe was introduced into the oropharynx and were advanced into the esophagus. Multiple views were obtained both from stomach and esophagus. Saline Contrast bubble injection was performed. Color, pulsed and continuous Doppler studies were performed. Patient tolerated the procedure well FINDINGS: Grade valve is heavily calcified and appear to be bicuspid. By planimetry valve area of about 1.5 was obtained. There appeared to be eccentric moderate aortic regurgitation. The aortic root diameter is normal. Mitral valve appeared to be structurally normal with mild central regurgitation. Left atrial appendage is free of any clot. The interatrial septum appeared to be intact without any spontaneous shunt. Injection of the contrast saline bubbles did not reveal any crossing of the bubbles. Left ventricular function appeared to be intact. There is biatrial enlargement and the aorta showed mild plaque. A peak gradient of 100 with a mean of 50 was obtained across the aortic valve IMPRESSION: #1. Bicuspid aortic valve. By planimetry valve doesn't appear to be significantly stenosed but has significant gradient suggestive of severe ao rtic stenosis. #2. Moderate aortic regurgitation #3. Mild mitral regurgitation 4. Preserved LV function. #5. No clot in the left atrial appendage. #6. No PFO PLAN: Further assess with cardiac catheterization
== END ==
LOC: CATHCVL 06:17
PROVIDERS: ATTEND Internal Medicine Interventional Cardiology
DX: Q23.1 Congenital insufficiency of aortic valve (principal); I25.10 Atherosclerotic heart disease of native coronary artery without angina pectoris; I10 Essential (primary) hypertension; E78.5 Hyperlipidemia, unspecified; E78.00 Pure hypercholesterolemia, unspecified; E66.9 Obesity, unspecified; Z95.5 Presence of coronary angioplasty implant and graft; Z68.34 Body mass index [BMI] 34.0-34.9, adult; Z79.899 Other long term (current) drug therapy; Z79.82 Long term (current) use of aspirin; Z98.890 Other specified postprocedural states
CPT/HCPCS: 93312; 93320; 93325; 93458; 93567; C1769; C1894; J2250; J2001; J3010; J1644; Q9967 ×2

== ENCOUNTER → 2020-01-05 | Outpatient (CLI) | payer MEDICARE, BC | LOC: LABWHC1 06:53 | PROVIDERS: ATTEND Internal Medicine | DX: Z13.9 Encounter for screening, unspecified (principal) | CPT/HCPCS: U0003; C9803 ==

== ENCOUNTER → 2020-01-25 | Outpatient (CLI) | payer MEDICARE, BC ==
[2020-01-25 12:01] LABS: Basophils # (A) 0.1 k/uL (0-0.2); Basophils % (A) 1 %; Eosinophils # (A) 0.3 k/uL (0-0.7); Eosinophils % (A) 3 %; HCT 46.7 % (39.0-53.0); HGB 14.1 gm/dL (13.0-17.5); Hypochromasia Slight; Lymphocytes # (A) 1.9 k/uL (1.0-4.8); Lymphocytes % (A) 22 %; MCH 26.4 pg (25.0-35.0); MCHC 30.2 g/dL (31.0-37.0); MCV 87.4 fL (80.0-100.0); Mean Platelet Volume 8.4; Monocytes # (A) 0.3 k/uL (0-1.0); Monocytes % (A) 4 %; Neutrophils % (A) 69 %; Platelet Count 219 k/uL (150-450); RBC 5.35 m/uL (4.30-5.90); WBC 8.7 k/uL (3.8-10.6)
[2020-01-25 19:05] LABS: % Iron Saturation 14.44 (15.00-50.00)
[2020-01-25 19:50] LABS: Ferritin 12.3 ng/mL (22.0-322.0)
== END | disposition home or self-care (01) ==
LOC: LABWHC1 11:19
PROVIDERS: ATTEND Internal Medicine
DX: K26.4 Chronic or unspecified duodenal ulcer with hemorrhage (principal)
CPT/HCPCS: 36415; 82728; 83540; 83550; 85025

== ENCOUNTER → 2020-01-30 | Outpatient (CLI) | payer MEDICARE, BC | END | disposition home or self-care (01) | LOC: LABWHC1 10:17 | PROVIDERS: ATTEND Internal Medicine | DX: Z11.59 Encounter for screening for other viral diseases (principal) | CPT/HCPCS: U0003; C9803 ==

== ENCOUNTER → 2020-04-02 | Outpatient (CLI) | payer MEDICARE, BC ==
--- NOTE | 2020-04-02 13:49 | XR ---
EXAMINATION TYPE: XR foot complete RT DATE OF EXAM: 04/02/2020 CLINICAL HISTORY: Pain and swelling. Fracture of tarsal bone. TECHNIQUE: Frontal, lateral, and oblique images of the right foot are obtained. COMPARISON: None FINDINGS: Marked flexion of the toes makes evaluation at this level suboptimal. Possible subluxation and/or severe narrowing first interphalangeal joint. Well-defined bony fragments suggesting old injur y at the medial base first distal phalanx. Broad-based bony projection from the lateral aspect of the proximal metaphysis first proximal phalanx possible osteochondroma. Mild to moderate narrowing first metatarsophalangeal joint. Satisfactory alignment at this level. Moderate to large size superior and inferior calcaneal spurs. No acute fracture is evident. Pes planus noted. Mild to moderate narrowing along with subchondral cystic change and mild spurring at the medial base of the first navicular bon e as articulates with the anterior talus. The overlying soft tissue appears unremarkable. IMPRESSION: As above.
== END | disposition home or self-care (01) ==
LOC: RADXRMAIN 13:24
PROVIDERS: ATTEND Podiatrist Foot Surgery
DX: M77.31 Calcaneal spur, right foot (principal); M19.071 Primary osteoarthritis, right ankle and foot; S92.201A Fracture of unspecified tarsal bone(s) of right foot, initial encounter for closed fracture; M79.671 Pain in right foot

== ENCOUNTER → 2020-04-26 | Outpatient (CLI) | payer MEDICARE, BC ==
[2020-04-26 14:34] LABS: Basophils # (A) 0.1 k/uL (0-0.2); Basophils % (A) 1 %; Eosinophils # (A) 0.2 k/uL (0-0.7); Eosinophils % (A) 2 %; HCT 44.5 % (39.0-53.0); HGB 14.5 gm/dL (13.0-17.5); Lymphocytes # (A) 1.3 k/uL (1.0-4.8); Lymphocytes % (A) 13 %; MCH 30.1 pg (25.0-35.0); MCHC 32.5 g/dL (31.0-37.0); MCV 92.7 fL (80.0-100.0); Monocytes # (A) 0.6 k/uL (0-1.0); Monocytes % (A) 6 %; Neutrophils # (A) 7.9 k/uL (1.3-7.7); Neutrophils % (A) 77 %; Platelet Count 194 k/uL (150-450); RDW 15.2 % (11.5-15.5); WBC 10.2 k/uL (3.8-10.6)
[2020-04-26 20:53] LABS: % Iron Saturation 21.38 (15.00-50.00)
[2020-04-26 21:01] LABS: Ferritin 34.9 ng/mL (22.0-322.0)
== END | disposition home or self-care (01) ==
LOC: LABWHC1 12:47
PROVIDERS: ATTEND Internal Medicine
DX: K26.4 Chronic or unspecified duodenal ulcer with hemorrhage (principal)
CPT/HCPCS: 36415; 82728; 83540; 83550; 85025